=== PATIENT | female | born 1985 | race Caucasian/White ===

== ENCOUNTER 2017-03-02 18:38 | Emergency (ER) | payer OTHER ==
[2017-03-02] MEDS ORDERED: OXYCODONE-ACETAMINOPHEN 5-325 MG TABLET PO ONE (19:26)
[2017-03-02] MEDS ORDERED: CLINDAMYCIN HCL 150 MG CAPSULE PO ONE (19:27)
[2017-03-02] MEDS ORDERED: HYDROCODONE/ACETAMINOPHEN 5-325 MG 6 TAB/DSPK PO PRN (19:27)
--- NOTE | 2017-03-02 19:29 | ER Document Report ---
HPI - HPI Patient complains to provider of: dental pain, facial swelling Pain Level: 4 Context: Patient is a 31 year old female that comes emergency department for chief complaint of dental pain and facial swelling on the right side. She states she has a known fracture and is supposed to get a root canal performed. Symptoms of swelling developed over the past day or so. She denies sore throat, fever, she denies any other current symptoms. LMP within the past month. - REPRODUCTIVE Reproductive: DENIES: : Past Medical History - General Information source: Patient - Social History Smoking Status: Current Every Day Smoker Chew tobacco use (# tins/day): No Smoking Education Provided: Yes - <3 min Frequency of alcohol use: None Drug Abuse: None Lives with: Family Family History: Reviewed & Not Pertinent Patient has suicidal ideation: No Patient has homicidal ideation: No Neurological Medical History: Reports: Hx Seizures Renal/ Medical History: Denies: Hx Peritoneal Dialysis Surgical Hx: Negative - Immunizations Hx Diphtheria, Pertussis, Tetanus Vaccination: Yes Vertical Provider Document - CONSTITUTIONAL General Appearance: WD/WN, No Apparent Distress - HEENT HEENT: Atraumatic, Normocephalic. negative: Normal ENT Exam - Mild right-sided jaw swelling, dental caries but no evidence of abscess, Mouth Diagram: 1 - Dental caries, localized erythema, no palpable abscess, no other abnormalities noted in the oral cavity - NECK Neck: Normal Inspection - RESPIRATORY Respiratory: Breath Sounds Normal, No Respiratory Distress O2 Sat by Pulse Oximetry: 99 - CARDIOVASCULAR Cardiovascular: Regular Rate, Regular Rhythm - GI/ABDOMEN Gastrointestinal: Abdomen Soft, Abdomen Non-Tender - NEURO Level of Consciousness: Awake, Alert, Appropriate - DERM Integumentary: Warm, Dry, No Rash Course - Re-evaluation Re-evalutation: Evaluation consistent with dental infection without abscess or evidence of Jono's angina. Treating, patient states she will follow-up with dentist, discussed return precautions, patient states understanding and agreement. - Vital Signs Vital signs: Temp Pulse Resp BP Pulse Ox 98.5 F 89 16 125/82 99 03/02/17 18:54 03/02/17 18:54 03/02/17 18:54 03/02/17 18:54 03/02/17 18:54 Discharge - Discharge Clinical Impression: Dental infection, Facial swelling Condition: Stable Disposition: HOME, SELF-CARE Additional Instructions: Your examination indicates a dental infection and secondary swelling. Take the clindamycin as prescribed to completion. Follow-up with your dentist for repair to prevent this from happening again. Return if you worsen including increased swelling or any other concerning symptoms. Prescriptions: Clindamycin HCl [Cleocin 150 mg Capsule] 150 mg PO Q6 #56 capsule Referrals: [facility] [Provider Group] - Follow up as needed
[2017-03-02 19:42] VITALS: BP 121/88
== END 2017-03-02 19:55 | disposition home or self-care (01) ==
LOC: ER 18:38
DX: K04.7 Periapical abscess without sinus (principal); R22.0 Localized swelling, mass and lump, head; F17.200 Nicotine dependence, unspecified, uncomplicated
CPT/HCPCS: 99282

== ENCOUNTER 2017-03-13 11:14 | Emergency (ER) | payer OTHER ==
[2017-03-13] MEDS ORDERED: LIDOCAINE 2% VISCOUS SOLN 20 ML UDCUP PO ONE (12:05)
[2017-03-13] MEDS ORDERED: HYDROCODONE/ACETAMINOPHEN 5-325 MG TABLET PO ONE (12:05)
--- NOTE | 2017-03-13 12:21 | ER Document Report ---
ED Oral Problem - General Chief Complaint: Jaw Pain Stated Complaint: DENTAL PAIN Time Seen by Provider: 03/13/17 11:40 Mode of Arrival: Ambulatory Information source: Patient Notes: 31-year-old female presents to ED for dental pain in the area where her tooth # 29 was pulled last Thursday. She is still having pain and swelling to the area. She states she just finished her antibiotics. She tried to call her dentist was not able to get in. TRAVEL OUTSIDE OF THE [place] IN LAST 30 DAYS: No - HPI Patient complains to provider of: Jaw pain Onset: Other - Thursday Onset: Gradual Quality of pain: Sharp, Throbbing Severity: Moderate Pain Level: 4 Associated symptoms: Jaw pain Worsened by: Cold Relieved by: Nothing Similar symptoms previously: Yes Recently seen / treated by doctor/dentist: Yes - Related Data Allergies/Adverse Reactions: No Known Allergies Allergy (Unverified 03/13/17 11:16) Past Medical History - General Information source: Patient - Social History Smoking Status: Current Every Day Smoker Cigarette use (# per day): Yes - One half pack per day Chew tobacco use (# tins/day): No Smoking Education Provided: Yes - 4 minutes Frequency of alcohol use: Occasional Drug Abuse: None 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 denies: DM, Malignancy, Thyroid Disfunction Patient has suicidal ideation: No Patient has homicidal ideation: No - Past Medical History Cardiac Medical History: Reports: None Pulmonary Medical History: Reports: None EENT Medical History: Reports: None Neurological Medical History: Reports: Hx Seizures Endocrine Medical History: Reports: None Renal/ Medical History: Reports: None Malignancy Medical History: Reports: None GI Medical History: Reports: None Musculoskeltal Medical History: Reports None Skin Medical History: Reports None Psychiatric Medical History: Reports: None Traumatic Medical History: Reports: None Infectious Medical History: Reports: None Past Surgical History: Reports: Hx Oral Surgery - Immunizations Immunizations up to date: Yes Hx Diphtheria, Pertussis, Tetanus Vaccination: Yes Review of Systems - Review of Systems Constitutional: No symptoms reported EENT: Mouth pain Cardiovascular: No symptoms reported Respiratory: No symptoms reported Gastrointestinal: No symptoms reported Genitourinary: No symptoms reported Female Genitourinary: No symptoms reported Musculoskeletal: No symptoms reported Skin: No symptoms reported Hematologic/Lymphatic: No symptoms reported Neurological/Psychological: No symptoms reported Physical Exam - Vital signs Vitals: Temp Pulse Resp BP Pulse Ox 98.2 F 89 18 109/58 L 99 03/13/17 11:28 03/13/17 11:28 03/13/17 11:28 03/13/17 11:28 03/13/17 11:28 Interpretation: Normal - General General appearance: Appears well, Alert - HEENT Head: Normocephalic, Atraumatic Eyes: Normal Pupils: PERRL Ears: Normal External canal: Normal Tympanic membrane: Normal Sinus: Normal Nasal: Normal Mouth/Lips: Other - Tooth pulled on Thursday and still having pain Mucous membranes: Normal Teeth diagram: 1 - Tooth 29 pulled on Thursday continue to have pain. And buttocks are completed. No redness no swelling to the site. Pharynx: Normal Neck: Normal - Respiratory Respiratory status: No respiratory distress Chest status: Nontender Breath sounds: Normal Chest palpation: Normal - Cardiovascular Rhythm: Regular Heart sounds: Normal auscultation Murmur: No - Abdominal Inspection: Normal Distension: No distension Bowel sounds: Normal Tenderness: Nontender Organomegaly: No organomegaly - Back Back: Normal, Nontender - Extremities General upper extremity: Normal inspection, Nontender, Normal color, Normal ROM , Normal temperature General lower extremity: Normal inspection, Nontender, Normal color, Normal ROM , Normal temperature, Normal weight bearing. No: Antione's sign - Neurological Neuro grossly intact: Yes Cognition: Normal Orientation: AAOx4 Amelia Coma Scale Eye Opening: Spontaneous Amelia Coma Scale Verbal: Oriented Amelia Coma Scale Motor: Obeys Commands [place] Coma Scale Total: 15 Speech: Normal Motor strength normal: LUE, RUE, LLE, RLE Sensory: Normal - Psychological Associated symptoms: Normal affect, Normal mood - Skin Skin Temperature: Warm Skin Moisture: Dry Skin Color: Normal Course - Re-evaluation Re-evalutation: 03/13/17 21:42 One Goshen given in the emergency room and then she was given viscous lidocaine with the rest of it sent home with her for the pain. As she was being discharged she stated that she was able to get a hold to her dentist and she was going to go by her dentist office. - Vital Signs Vital signs: Temp Pulse Resp BP Pulse Ox 98.7 F 81 18 128/86 H 98 03/13/17 12:38 03/13/17 12:38 03/13/17 12:38 03/13/17 12:38 03/13/17 12:38 Discharge - Discharge Clinical Impression: dental pain recent extraction Condition: Stable Disposition: HOME, SELF-CARE Additional Instructions: TOOTHACHE: Dental pain today is due to your recent dental extraction sometimes the nerve becomes inflamed when you smoke after the tooth is removed. Please do not smoke continue follow-up with the dentist. Please use the viscous lidocaine every 2-3 hours as needed for dental pain but a small amount over the area that is hurting. Please do not use ice water or a straw or smoke is all of these will increase your pain. ORAL NARCOTIC MEDICATION: You have been given a Goshen for pain control. This medication is a narcotic. It's best taken with food, as nausea can result if taken on an empty stomach. Don't operate machinery or drive within six hours of taking this medication. Do not combine this medicine with alcohol, or with any medication which can cause sedation (such as cold tablets or sleeping pills) unless you get permission from the physician. Narcotics tend to cause constipation. If possible, drink plenty of fluids and eat a diet high in fiber and fruits. Please be aware that prescription narcotics also have the potential for abuse. People become addicted to these medications because of the general sense of wellbeing that they induce. This feeling along with a significant reduction in tension, anxiety, and aggression provides a stimulating seductive quality to these drugs. Once your pain is under control, we encourage you to discard your unused narcotics. FOLLOW-UP CARE: You have been referred for follow-up care to the dentists listed below. Call the dentists office for an appointment as you were instructed or within the next two days. If you experience worsening or a significant change in your symptoms, notify the physician immediately or return to the Emergency Department at any time for re-evaluation. [facility] [address] Thursday mornings, by appointment [place] [address] [place] [address] [facility] [address] [facility] [address] [facility] [address] [facility] Emergency Department [facility] [address] [email or web address] [address] [place] [address] Thursday- 8:00am to 5:00 pm Will see [facility] other [facility]. Charges based on income and family size and accepts Medicare, Medicaid, and Insurances Will pull molars [facility] [id number] Hours of Operation 8:00 am - 4:30 pm weekdays The following dental offices accept Medicaid: [facility] [address] Dr. Shaver Dr. Angel Thomas Pérez, [place], and [place] oral surgery Dr. Mead ([place]) Dr. Rosa ([place]) [facility] Drs. Doran ([place]) Dr. Cruz ([place]) [facility] Dr. Lee ([place]) Drs. Harmon and ([place]) Medicaid Care Line Forms: Smoking Cessation Education Referrals: HEATHER PETERS MD [Primary Care Provider] - Follow up as needed
[2017-03-13 12:42] VITALS: BP 128/86
== END 2017-03-13 12:41 | disposition home or self-care (01) ==
LOC: ER 11:14
DX: K08.89 Other specified disorders of teeth and supporting structures (principal); R68.84 Jaw pain; F17.210 Nicotine dependence, cigarettes, uncomplicated
CPT/HCPCS: 99406; 99283; J3490

== ENCOUNTER 2017-03-24 18:17 | Emergency (ER) | payer OTHER ==
[2017-03-24 18:26] VITALS: BP 116/75
[2017-03-24] MEDS ORDERED: TETANUS/DIPHTHERIA TOX-ADULT 0.5 ML SYR (>=7YO) IM ONE (21:52)
[2017-03-24] MEDS ORDERED: KETOROLAC TROMETHAMINE 60 MG/2 ML SDV IM ONE (21:52)
[2017-03-24] MEDS ORDERED: CLINDAMYCIN HCL 150 MG CAPSULE PO ONE (21:52)
[2017-03-24] MEDS ORDERED: LIDOCAINE 1% INJ (10 MG/ML) 10 ML MDV INJ ONE (22:25)
[2017-03-24] MEDS ORDERED: LIDOCAINE 1% INJ-PF (10 MG/ML) 30 ML SDV INJ ONE (22:27)
[2017-03-24] MEDS ORDERED: LIDOCAINE 1% INJ-PF (10 MG/ML) 30 ML SDV ONE (22:28)
[2017-03-24] MEDS ORDERED: OXYCODONE-ACETAMINOPHEN 5-325 MG TABLET PO ONE (22:34)
--- NOTE | 2017-03-24 23:16 | ER Document Report ---
ED Oral Problem - General Chief Complaint: Lip Injury Stated Complaint: LIP PIERCING STUCK/PAIN, SWELLING Time Seen by Provider: 03/24/17 21:40 Mode of Arrival: Ambulatory Information source: Patient TRAVEL OUTSIDE OF THE [place] IN LAST 30 DAYS: No - HPI Patient complains to provider of: Foreign body Notes: 31-year-old female presented today for evaluation of foreign body localized to her right lower lip. Patient reported that she inserted preceding approximately 5 days ago in order to dilate her prior piercing site. Unfortunately the piercing had stuck in her lower lip. Patient was unable to remove secondary to pain. Now patient has lower lip swelling with mild purulence at the site of the insertion. No systemic signs of illness such as fevers, chills, nausea or vomiting. - Related Data Allergies/Adverse Reactions: acetaminophen [From Tylenol-Codeine #3] Allergy (Verified 03/24/17 18:19) codeine [From Tylenol-Codeine #3] Allergy (Verified 03/24/17 18:19) Past Medical History - General Information source: Patient - Social History Smoking Status: Current Some Day Smoker Chew tobacco use (# tins/day): No Frequency of alcohol use: None Drug Abuse: None Family History: CAD, COPD, CVA, Hyperlipidemia, Hypertension. denies: DM, Malignancy, Thyroid Disfunction Patient has suicidal ideation: No Patient has homicidal ideation: No Neurological Medical History: Reports: Hx Seizures Renal/ Medical History: Denies: Hx Peritoneal Dialysis Past Surgical History: Reports: Hx Oral Surgery - Immunizations Immunizations up to date: Yes Hx Diphtheria, Pertussis, Tetanus Vaccination: Yes Review of Systems - Review of Systems Notes: REVIEW OF SYSTEMS: CONSTITUTIONAL: -fevers, -chills HEENT: -eye pain, -difficulty swallowing, -nasal congestion, +lip swelling and pain CARDIOVASCULAR: -chest pain, -syncope. RESPIRATORY: -cough, -SOB GASTROINTESTINAL: -abdominal pain, -nausea, -vomiting, -diarrhea GENITOURINARY: -dysuria, -hematuria MUSCULOSKELETAL: -back pain, -neck pain SKIN: -rash or skin lesions. HEMATOLOGIC: -easy bruising or bleeding. LYMPHATIC: -swollen, enlarged glands. NEUROLOGICAL: -altered mental status or loss of consciousness, -headache, - neurologic symptoms PSYCHIATRIC: -anxiety, -depression. ALL OTHER SYSTEMS REVIEWED AND NEGATIVE. Physical Exam - Vital signs Vitals: Temp Pulse Resp BP Pulse Ox 98.3 F 80 20 116/75 100 03/24/17 18:25 03/24/17 18:25 03/24/17 18:25 03/24/17 18:25 03/24/17 18:25 - Notes Notes: Reviewed vital signs and nursing note as charted by RN. CONSTITUTIONAL: Alert HEAD: Normocephalic; atraumatic EYES: PERRL ENT: normal nose; patient has outside of the piercing protruding from the lower aspect of the right lip, patient still has the ball inside of the lip within the subcutaneous tissue, no intraoral lesions, no facial swelling or trismus NECK: Supple without meningismus CARD: Regular rate and rhythm; no murmurs RESP: Normal chest excursion without splinting or tachypnea; breath sounds clear and equal bilaterally ABD/GI: Normal bowel sounds; non-distended; soft, EXT: Normal ROM in all joints SKIN: Normal color for age and race; warm; dry; good turgor; capillary refill < 2 seconds; no acute lesions noted NEURO: .Cranial nerves 3-12 intact PSYCH: Slightly anxious Course - Re-evaluation Re-evalutation: 03/24/17 23:24 31-year-old presented today for evaluation of lip piercing Patient was started on clindamycin as well as given Percocet for pain Tetanus was updated Foreign body was removed successfully with local anesthesia, please see procedure note Patient was discharged home with Percocet for pain as well as clindamycin - Vital Signs Vital signs: Temp Pulse Resp BP Pulse Ox 98.3 F 80 20 116/75 100 03/24/17 18:25 03/24/17 18:25 03/24/17 18:25 03/24/17 18:25 03/24/17 18:25 Procedures - Incision and Drainage Face Type: Simple Anesthetic type: 1% Lidocaine I&D procedure: Chlorprep applied Incision Method: Incision made with needle - No incision was performed Notes: 03/24/17 23:26 Skin was prepped with chlorhexidine Local anesthesia was used with lidocaine without any epinephrine Lip piercing was removed with direct traction Patient tolerated procedure well No complications Mild postprocedure bleeding that has completely resolved prior to discharge Discharge - Discharge Clinical Impression: Foreign body in oral cavity Condition: Stable Disposition: HOME, SELF-CARE Additional Instructions: Please take your antibiotics as prescribed You can wash your skin with soap and water Continue take your pain medication as prescribed Come back if you have worsening fevers, chills, lip swelling, shortness of breath Prescriptions: Clindamycin HCl 300 mg PO Q6H #28 capsule Meloxicam 7.5 mg PO DAILY #7 tablet Oxycodone HCl/Acetaminophen [Percocet 5-325 mg Tablet] 1 tab PO ASDIR PRN #5 tab PRN Reason: Referrals: HEATHER PETERS MD [Primary Care Provider] - Follow up as needed
== END 2017-03-24 23:00 | disposition home or self-care (01) ==
LOC: ER 18:17
DX: S01.521A Laceration with foreign body of lip, initial encounter (principal); X58.XXXA Exposure to other specified factors, initial encounter; F17.200 Nicotine dependence, unspecified, uncomplicated; Z23 Encounter for immunization
CPT/HCPCS: 90471; 90714; 99283; J1885

== ENCOUNTER 2017-08-31 18:06 | Emergency (ER) | payer OTHER ==
[2017-08-31 18:20] VITALS: BP 100/54
--- NOTE | 2017-08-31 18:59 | ER Document Report ---
ED Medical Screen (RME) - General Chief Complaint: General Weakness Stated Complaint: DIZZINESS Time Seen by Provider: 08/31/17 18:45 Notes: 31-year-old female patient comes emergency room complaining of 6 day history of slurred speech, weakness and difficulty getting out of bed. Patient states [place] [facility]. She started falling and had a seizure. She has a seizure disorder and takes Keppra and Lamictal. She also takes Adderall 3 times daily, and Xanax 1 mg twice daily. She initially seems to be solving with nasal congestion or rhinorrhea. Her speech is somewhat slurred, however when she got angry about the line of questioning, she ripped off a very long sentence without any slurred speech. The rest of the time her speech is somewhat difficult to understand. At one time she stated that the symptoms started in the middle of October. When I told her that we will be getting a CT scan due to the symptoms she was reporting, she states she had one 2 months ago. When I advised her that 2 months ago she was not having these symptoms, she seemed to get a little agitated. I have greeted and performed a rapid initial assessment of this patient. A comprehensive ED assessment and evaluation of the patient, analysis of test results and completion of the medical decision making process will be conducted by additional ED providers. While I was putting in orders and dictating the RME, the nurse reported that the patient walked out and told her she wanted to leave, and they left. TRAVEL OUTSIDE OF THE [place] IN LAST 30 DAYS: No - Related Data Allergies/Adverse Reactions: No Known Allergies Allergy (Verified 08/31/17 18:41) Home Medications: Keppra 1000mg daily, Past Medical History - Social History Chew tobacco use (# tins/day): No Frequency of alcohol use: None Drug Abuse: None Neurological Medical History: Reports: Hx Seizures Renal/ Medical History: Denies: Hx Peritoneal Dialysis Past Surgical History: Reports: Hx Oral Surgery - Immunizations Immunizations up to date: Yes Hx Diphtheria, Pertussis, Tetanus Vaccination: Yes Physical Exam - Vital signs Vitals: Temp Pulse Resp BP Pulse Ox 98.0 F 54 L 20 100/54 L 97 08/31/17 18:18 08/31/17 18:18 08/31/17 18:18 08/31/17 18:18 08/31/17 18:18 Course - Vital Signs Vital signs: Temp Pulse Resp BP Pulse Ox 98.0 F 54 L 20 100/54 L 97 08/31/17 18:18 08/31/17 18:18 08/31/17 18:18 08/31/17 18:18 08/31/17 18:18 Doctor's Discharge - Discharge Condition: Good Disposition: ELOPED Referrals: HEATHER PETERS MD [Primary Care Provider] - Follow up as needed
== END 2017-08-31 18:54 | disposition left against medical advice (07) ==
LOC: ER 18:06
DX: R53.1 Weakness (principal); R47.81 Slurred speech; G40.909 Epilepsy, unspecified, not intractable, without status epilepticus; Z79.899 Other long term (current) drug therapy; Z53.20 Procedure and treatment not carried out because of patient's decision for unspecified reasons
CPT/HCPCS: 99281

== ENCOUNTER 2017-09-25 12:42 | Emergency (ER) | payer OTHER ==
[2017-09-25] MEDS ORDERED: ACETAMINOPHEN 325 MG TABLET PO ONE (12:57)
--- NOTE | 2017-09-25 12:59 | ER Document Report ---
ED Medical Screen (RME) - General Chief Complaint: Vaginal Bleeding Stated Complaint: VAGINAL BLEEDING Time Seen by Provider: 09/25/17 12:54 Mode of Arrival: Ambulatory Information source: Patient TRAVEL OUTSIDE OF THE [place] 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 The patient will be seen and fully evaluated, including a full history and physical exam, by a provider ( in Main ED or Fast Track) when a room becomes available. - Related Data Allergies/Adverse Reactions: No Known Allergies Allergy (Verified 09/25/17 12:46) Past Medical History Neurological Medical History: Reports: Hx Seizures Renal/ Medical History: Denies: Hx Peritoneal Dialysis Past Surgical History: Reports: Hx Oral Surgery - Immunizations Immunizations up to date: Yes Hx Diphtheria, Pertussis, Tetanus Vaccination: Yes Physical Exam - Vital signs Vitals: Temp Pulse Resp BP Pulse Ox 97.9 F 89 16 125/76 99 09/25/17 12:50 09/25/17 12:50 09/25/17 12:50 09/25/17 12:50 09/25/17 12:50 Course - Vital Signs Vital signs: Temp Pulse Resp BP Pulse Ox 97.9 F 89 16 125/76 99 09/25/17 12:50 09/25/17 12:50 09/25/17 12:50 09/25/17 12:50 09/25/17 12:50 Doctor's Discharge - Discharge Referrals: HEATHER PETERS MD [Primary Care Provider] - Follow up as needed
[2017-09-25 13:38] LABS: ABSOLUTE BASOPHILS # (AUTO) 0.1 10^3/uL (0.0-0.2); ABSOLUTE EOSINOPHILS # (AUTO) 0.2 10^3/uL (0.0-0.6); ABSOLUTE LYMPHOCYTES (AUTO) 1.8 10^3/uL (0.5-4.7); ABSOLUTE MONOCYTES (AUTO) 0.4 10^3/uL (0.1-1.4); ABSOLUTE NEUT (AUTO) 3.3 10^3/uL (1.7-8.2); BASOPHILS % (AUTO) 1.1 % (0-2); EOSINOPHILS % (AUTO) 2.8 % (0-6); HEMOGLOBIN 14.7 g/dL (12.0-15.5); LYMPHOCYTES % (AUTO) 30.9 % (13-45); MEAN CORPUSCULAR HEMOGLOBIN 29.5 pg (27.0-33.4); MEAN CORPUSCULAR HGB CONC 33.4 g/dL (32.0-36.0); MEAN CORPUSCULAR VOLUME 88 fl (80-97); MONOCYTES % (AUTO) 7.2 % (3-13); PLATELET COUNT 315 10^3/uL (150-450); RED BLOOD COUNT 4.97 10^6/uL (3.72-5.28); RED CELL DISTRIBUTION WIDTH 15.1 % (11.5-14.0); TOTAL CELLS COUNTED % (AUTO) 100 %; WHITE BLOOD COUNT 5.7 10^3/uL (4.0-10.5)
--- NOTE | 2017-09-25 13:41 | ER Document Report ---
ED GI/ - General Chief Complaint: Vaginal Bleeding Stated Complaint: VAGINAL BLEEDING Time Seen by Provider: 09/25/17 12:54 Mode of Arrival: Ambulatory Information source: Patient Notes: 31-year-old complaining of vaginal bleeding and cramping she is supposed to be 12 weeks by LMP being the end of June. She had a positive urine test early July confirmed by [facility] in no check since then. She did have some spotting in August without pain. No vaginal discharge or odor. No rectal pain. No frequency dysuria. No fever or chills. TRAVEL OUTSIDE OF THE [place] IN LAST 30 DAYS: No - Related Data Allergies/Adverse Reactions: No Known Allergies Allergy (Verified 09/25/17 12:46) Past Medical History - General Information source: Patient - Social History Smoking Status: Never Smoker Chew tobacco use (# tins/day): No Frequency of alcohol use: None Drug Abuse: None Lives with: Spouse/Significant other Family History: CAD, COPD, CVA, Hyperlipidemia, Hypertension Patient has suicidal ideation: No Patient has homicidal ideation: No Neurological Medical History: Reports: Hx Seizures Renal/ Medical History: Denies: Hx Peritoneal Dialysis Past Surgical History: Reports: Hx Dilation and Curettage - several, Hx Oral Surgery - Immunizations Immunizations up to date: Yes Hx Diphtheria, Pertussis, Tetanus Vaccination: Yes Review of Systems - Review of Systems Constitutional: No symptoms reported EENT: No symptoms reported Cardiovascular: No symptoms reported Respiratory: No symptoms reported Gastrointestinal: No symptoms reported Genitourinary: No symptoms reported Female Genitourinary: See HPI Musculoskeletal: No symptoms reported Skin: No symptoms reported Hematologic/Lymphatic: No symptoms reported Neurological/Psychological: No symptoms reported Physical Exam - Vital signs Vitals: Temp Pulse Resp BP Pulse Ox 97.9 F 89 16 125/76 99 09/25/17 12:50 09/25/17 12:50 09/25/17 12:50 09/25/17 12:50 09/25/17 12:50 Interpretation: Normal - General General appearance: Appears well, Alert - HEENT Head: Normocephalic, Atraumatic Eyes: Normal Pupils: PERRL Neck: Supple - Respiratory Respiratory status: No respiratory distress Chest status: Nontender Breath sounds: Normal Chest palpation: Normal - Cardiovascular Rhythm: Regular Heart sounds: Normal auscultation Murmur: No - Abdominal Inspection: Normal Distension: No distension Bowel sounds: Normal Tenderness: Nontender. No: Tender Organomegaly: No organomegaly - Back Back: Normal, Nontender - Extremities General upper extremity: Normal inspection, Nontender, Normal color, Normal ROM , Normal temperature General lower extremity: Normal inspection, Nontender, Normal color, Normal ROM , Normal temperature, Normal weight bearing. No: Antione's sign - Neurological Neuro grossly intact: Yes Cognition: Normal Orientation: AAOx4 [place] Coma Scale Eye Opening: Spontaneous [place] Coma Scale Verbal: Oriented [employer] [place] Coma Scale Motor: Obeys Commands Amelia Coma Scale Total: 15 Speech: Normal Motor strength normal: LUE, RUE, LLE, RLE Sensory: Normal - Psychological Associated symptoms: Normal affect, Normal mood - Skin Skin Temperature: Warm Skin Moisture: Dry Skin Color: Normal Skin irregularity: negative: Rash Course - Re-evaluation Re-evalutation: 09/25/17 14:19 test quantitative is negative, there is no intra-or extrauterine on the ultrasound. Chemistry is negative, urinalysis shows 2 WBCs no RBCs and a trace of bacteria, the CBC is normal the hemoglobin is 14.7. There are no adnexal masses, free fluid in the blood flow to the ovaries are visualized by ultrasound Doppler. No retained products. 09/25/17 14:21 09/25/17 14:31 - Vital Signs Vital signs: Temp Pulse Resp BP Pulse Ox 97.9 F 89 16 125/76 99 09/25/17 12:50 09/25/17 12:50 09/25/17 12:50 09/25/17 12:50 09/25/17 12:50 - Laboratory Result Diagrams: 09/25/17 13:23 09/25/17 13:23 Laboratory results interpreted by me: 09/25/17 09/25/17 13:10 13:23 RDW 15.1 H Urine Blood LARGE H Urine Urobilinogen 2.0 H Discharge - Discharge Clinical Impression: Cramping and vaginal bleeding Condition: Good Disposition: HOME, SELF-CARE Instructions: Ibuprofen (General) ([facility]), Pelvic Pain ([facility]), Vaginal Bleeding ( [facility]) Additional Instructions: Warm compress may help with the cramps Motrin for cramps Follow-up with your primary care doctor Copy of the ultrasound and lab work has been given to you Prescriptions: Ibuprofen [Motrin 600 mg Tablet] 600 mg PO Q8HP PRN #30 tablet PRN Reason: Referrals: HEATHER PETERS MD [NO LOCAL MD] - Follow up as needed
[2017-09-25 13:42] LABS: APPEARANCE,URINE SLIGHTLY-CLOUDY; BILIRUBIN,URINE NEGATIVE (NEGATIVE); COLOR,URINE YELLOW; GLUCOSE, URINE NEGATIVE (NEGATIVE); KETONES,URINE NEGATIVE (NEGATIVE); LEUKOCYTE ESTERASE,URINE NEGATIVE (NEGATIVE); NITRITE,URINE NEGATIVE (NEGATIVE); PROTEIN,URINE NEGATIVE (NEGATIVE); URINE SPECIFIC GRAVITY 1.014
[2017-09-25 13:51] LABS: ALANINE AMINOTRANSFERASE 19 U/L (9-52); ALBUMIN 4.3 g/dL (3.5-5.0); ALKALINE PHOSPHATASE 63 U/L (38-126); ANION GAP 13 (5-19); ASPARTATE AMINO TRANSFERASE 17 U/L (14-36); BILIRUBIN,DIRECT 0.2 mg/dL (0.0-0.4); BILIRUBIN,TOTAL 0.5 mg/dL (0.2-1.3); BLOOD UREA NITROGEN 8 mg/dL (7-20); CALCIUM 9.1 mg/dL (8.4-10.2); CARBON DIOXIDE 22 mmol/L (22-30); CHLORIDE 105 mmol/L (98-107); GLUCOSE 99 mg/dL (75-110); POTASSIUM 4.6 mmol/L (3.6-5.0); TOTAL PROTEIN 7.3 g/dL (6.3-8.2)
--- NOTE | 2017-09-25 14:13 | RADIOLOGY REPORT (SQ) ---
EXAM DESCRIPTION: U/S [id number] TRNABD 1GES W/ODOP COMPLETED DATE/TIME: 09/25/2017 1:51 pm REASON FOR STUDY: vaginal bleeding COMPARISON: None. TECHNIQUE: Transabdominal static and realtime grayscale images acquired of the pelvis. Additional se lected color Doppler images recorded. All images stored on PACs. BHCG: Not available. LIMITATIONS: None. FINDINGS: UTERUS: The uterus measures 7.4 x 6.7 x 5.2 cm. The endometrium measures 5 mm in double w all thickness. No visualized intrauterine . The cervix measures 1.6 cm in length. RIGHT ADNEXA: The right ovary measures 2.7 x 1.9 x 2.2 cm. Flow by Doppler was shown to the right ov tamar. No adnexal free fluid. No adnexal masses. LEFT ADNEXA: The left ovary measures 2.5 x 1.6 x 1.6 cm. Flow by Doppler was shown to the left ovary . No adnexal free fluid. No adnexal masses. FREE FLUID: None. IMPRESSION: NO VISUALIZED INTRA- OR EXTRAUTERINE . ECTOPIC CANNOT BE EXCLUDED. FOLLOW-UP ULTRASOUND AND SERIAL BHCG LEVELS STRONGLY RECOMMENDED TO ACCURATELY ASSESS STATU S. TECHNICAL DOCUMENTATION: JOB ID: [id number] [place]-[id number] 2010 [employer] - [employer]- All Rights Reserved Reading location - IP/workstation name: [email or web address]
[2017-09-25] MEDS ORDERED: HYDROCODONE/ACETAMINOPHEN 5-325 MG TABLET PO ONE (14:30)
[2017-09-25 14:49] VITALS: BP 132/84
== END 2017-09-25 14:49 | disposition home or self-care (01) ==
LOC: ER 12:42
DX: N93.9 Abnormal uterine and vaginal bleeding, unspecified (principal); R25.2 Cramp and spasm
CPT/HCPCS: 36415; 76801; 80053; 81001; 84702; 85025; 86900; 86901; 87086; 99284

== ENCOUNTER 2017-10-20 11:31 | Emergency (ER) | payer OTHER | END 2017-10-20 12:12 | disposition left against medical advice (07) | LOC: ER 11:31 | DX: Z53.21 Procedure and treatment not carried out due to patient leaving prior to being seen by health care provider (principal) ==

== ENCOUNTER 2018-01-19 06:48 | Emergency (ER) | payer OTHER ==
[2018-01-19 07:33] LABS: APPEARANCE,URINE TURBID; BILIRUBIN,URINE NEGATIVE (NEGATIVE); COLOR,URINE YELLOW; GLUCOSE, URINE NEGATIVE (NEGATIVE); KETONES,URINE NEGATIVE (NEGATIVE); LEUKOCYTE ESTERASE,URINE LARGE (NEGATIVE); NITRITE,URINE NEGATIVE (NEGATIVE); PROTEIN,URINE 100 mg/dL (NEGATIVE); URINE SPECIFIC GRAVITY 1.014
[2018-01-19] MEDS ORDERED: LIDOCAINE 1% INJ-PF (10 MG/ML) 30 ML SDV INJ ONE (07:49)
[2018-01-19] MEDS ORDERED: CEFTRIAXONE INJ 1000 MG VIAL IM ONE (07:49)
--- NOTE | 2018-01-19 07:55 | ER Document Report ---
HPI - HPI Pain Level: 5 Notes: Patient is a 32-year-old female with a history of epilepsy who presents to the ED complaining of bilateral flank pain, suprapubic pressure, burning with urination, and generalized body ache over the last week. Patient states that she has tried conservative measures without any resolve. Patient states that she did start having spotting which she believes is the start of her cycle. Denies drug allergies. She is still able to eat and drink, but does have a decreased p.o. intake. She is having normal bowel movements. She has no concern of STD or STI. Denies any headache, fever, URI, sore throat, chest pain , palpitations, syncope, cough, shortness of breath, wheeze, dyspnea, nausea/ vomiting/diarrhea, loss of control of bowel or bladder, numbness/tingling, saddle anesthesia, muscle paralysis/weakness, or rash. - ROS Systems Reviewed and Negative: Yes All other systems reviewed and negative - CONSTITUTIONAL Constitutional: REPORTS: Fever, Chills - URINARY Urinary: REPORTS: Dysuria, Urgency, Frequency - REPRODUCTIVE Reproductive: DENIES: : Past Medical History - Social History Smoking Status: Current Every Day Smoker Chew tobacco use (# tins/day): No Drug Abuse: None Family History: CAD, COPD, CVA, Hyperlipidemia, Hypertension Patient has suicidal ideation: No Patient has homicidal ideation: No Neurological Medical History: Reports: Hx Seizures Renal/ Medical History: Denies: Hx Peritoneal Dialysis Past Surgical History: Reports: Hx Dilation and Curettage - several, Hx Oral Surgery - Immunizations Immunizations up to date: Yes Hx Diphtheria, Pertussis, Tetanus Vaccination: Yes Vertical Provider Document - CONSTITUTIONAL Agree With Documented VS: Yes Notes: PHYSICAL EXAMINATION: GENERAL: Well-appearing, well-nourished and in no acute distress. HEAD: Atraumatic, normocephalic. EYES: Pupils equal round and reactive to light, extraocular movements intact, sclera anicteric, conjunctiva are normal. ENT: EAC clear b/l. TM's intact b/l without erythema, fluid, or perforation. Nares patent and without discharge. oropharynx clear without exudates. No tonsilar hypertrophy or erythema. Moist mucous membranes. No sinus tenderness. NECK: Normal range of motion, supple without lymphadenopathy LUNGS: Breath sounds clear to auscultation bilaterally and equal. No wheezes rales or rhonchi. HEART: Regular rate and rhythm without murmurs, rubs, gallops. ABDOMEN: Soft, nondistended abdomen. No guarding, no rebound. No masses appreciated. Normal bowel sounds present. + mild b/l CVA tenderness. + mild suprapubic tenderness. No tenderness at McBurney point. Sandoval neg. Musculoskeletal: FROM to passive/active. Strength 5+/5. Extremities: No cyanosis, clubbing, or edema b/l. Peripheral pulses 2+. Capillary refill less than 3 seconds. NEUROLOGICAL: Normal speech, normal gait. Normal sensory, motor exams PSYCH: Normal mood, normal affect. SKIN: Warm, Dry, normal turgor, no rashes or lesions noted. - INFECTION CONTROL TRAVEL OUTSIDE OF THE [place] IN LAST 30 DAYS: No Course - Re-evaluation Re-evalutation: 01/19/18 07:52 Patient is an afebrile, well-hydrated, 32-year-old female who presents to the ED with an acute UTI, suspect pyelonephritis as well. Vitals are acceptable without any significant tachycardia, tachypnea, or hypoxia. PE is otherwise unremarkable. Patient is nontoxic-appearing and is tolerating p.o. w/o any difficulties. Rocephin given IM today. No further labs or imaging warranted. See urinalysis. Urine culture is pending. HCG negative. Low suspicion/risk for acute appendicitis, bowel obstruction, acute cholecystitis, acute cholangitis, perforated diverticulitis, incarcerated hernia, pancreatitis, perforated ulcer, peritonitis, sepsis, pelvic inflammatory disease, ectopic , tubo-ovarian abscess, ovarian torsion, or other systemic emergent condition at this time. Patient is aware that her condition can change from initial presentation and she needs to monitor symptoms closely and seek medical attention if any acute changes. I will send her home with a prescription for Keflex. Conservative measures otherwise for symptoms. Recheck with your PCM in 3-5 days. Return to the ED with any worsening/concerning symptoms otherwise as reviewed in discharge. Patient is in agreement. - Vital Signs Vital signs: Temp Pulse Resp BP Pulse Ox 98.2 F 105 H 20 116/59 L 96 01/19/18 07:00 01/19/18 07:00 01/19/18 07:00 01/19/18 07:00 01/19/18 07:00 - Laboratory Laboratory results interpreted by me: 01/19/18 06:55 Urine Protein 100 H Urine Blood LARGE H Urine Urobilinogen 4.0 H Ur Leukocyte Esterase LARGE H Discharge - Discharge Clinical Impression: Acute UTI (urinary tract infection), Pyelonephritis Condition: Stable Disposition: HOME, SELF-CARE Instructions: Cephalexin ([facility]), Pyelonephritis ([facility]), Urinary Tract Infection ( [facility]) Additional Instructions: Push fluids (i.e. water, cranberry juice) Proper hygenic technique Keep the skin clean Tylenol/ibuprofen as needed May use over the counter AZO for burning with urination x2-3 days Take medications as directed F/u with your PCM in 3-5 days for a recheck Consider consult with a Urologist for ongoing/worsening symptoms. Return to the ED with any worsening symptoms and/or development of fever, headache, chest pain, palpitations, syncope, shortness of breath, trouble breathing, abdominal pain, n/v/d, blood in stool/urine, loss of control of bowel /bladder, urinary retention, or other worsening symptoms that are concerning to you. Prescriptions: Cephalexin Monohydrate [Keflex 500 mg Capsule] 500 mg PO QID #40 capsule Referrals: [facility] [Provider Group] - Follow up as needed
[2018-01-19] MEDS ORDERED: OXYCODONE HCL IR 5 MG TABLET PO ONE (07:59)
[2018-01-19 08:52] VITALS: BP 102/60
== END 2018-01-19 08:52 | disposition home or self-care (01) ==
LOC: ER 06:48
DX: N10 Acute pyelonephritis (principal); F17.200 Nicotine dependence, unspecified, uncomplicated
CPT/HCPCS: 99283; 87086; 81025; 87088; 81001; 87186; J3490; J0696

== ENCOUNTER 2018-01-21 10:49 | Emergency (ER) | payer OTHER ==
[2018-01-21 12:23] LABS: APPEARANCE,URINE SLIGHTLY-CLOUDY; BILIRUBIN,URINE NEGATIVE (NEGATIVE); COLOR,URINE YELLOW; GLUCOSE, URINE NEGATIVE (NEGATIVE); KETONES,URINE NEGATIVE (NEGATIVE); LEUKOCYTE ESTERASE,URINE SMALL (NEGATIVE); NITRITE,URINE NEGATIVE (NEGATIVE); PROTEIN,URINE NEGATIVE (NEGATIVE); URINE SPECIFIC GRAVITY 1.018
[2018-01-21] MEDS ORDERED: NORMAL SALINE 1000 ML 1,000 ML IV ONE (12:54)
[2018-01-21 13:27] LABS: ABSOLUTE EOSINOPHILS # (AUTO) 0.1 10^3/uL (0.0-0.6); ABSOLUTE LYMPHOCYTES (AUTO) 1.2 10^3/uL (0.5-4.7); ABSOLUTE MONOCYTES (AUTO) 0.4 10^3/uL (0.1-1.4); ABSOLUTE NEUT (AUTO) 2.3 10^3/uL (1.7-8.2); BASOPHILS % (AUTO) 0.5 % (0-2); EOSINOPHILS % (AUTO) 2.8 % (0-6); HEMATOCRIT 37.5 % (36.0-47.0); HEMOGLOBIN 12.7 g/dL (12.0-15.5); LYMPHOCYTES % (AUTO) 30.2 % (13-45); MEAN CORPUSCULAR HEMOGLOBIN 29.6 pg (27.0-33.4); MEAN CORPUSCULAR HGB CONC 33.9 g/dL (32.0-36.0); MEAN CORPUSCULAR VOLUME 87 fl (80-97); MONOCYTES % (AUTO) 10.2 % (3-13); PLATELET COUNT 259 10^3/uL (150-450); RED CELL DISTRIBUTION WIDTH 13.7 % (11.5-14.0); SEGMENTED NEUTROPHILS % (AUTO) 56.3 % (42-78); TOTAL CELLS COUNTED % (AUTO) 100 %; WHITE BLOOD COUNT 4.1 10^3/uL (4.0-10.5)
[2018-01-21] MEDS ORDERED: KETOROLAC TROMETHAMINE INJ/PF 30 MG/1 ML SDV IV ONE (13:58)
--- NOTE | 2018-01-21 15:14 | ER Document Report ---
ED General - General Chief Complaint: Skin Problem Stated Complaint: MEDICATION REACTION Time Seen by Provider: 01/21/18 11:44 TRAVEL OUTSIDE OF THE [place] IN LAST 30 DAYS: No - Related Data Allergies/Adverse Reactions: No Known Allergies Allergy (Verified 01/21/18 10:51) Past Medical History - Social History Smoking Status: Current Every Day Smoker Chew tobacco use (# tins/day): No Frequency of alcohol use: None Drug Abuse: None Family History: CAD, COPD, CVA, Hyperlipidemia, Hypertension Patient has suicidal ideation: No Patient has homicidal ideation: No Neurological Medical History: Reports: Hx Seizures Renal/ Medical History: Denies: Hx Peritoneal Dialysis Past Surgical History: Reports: Hx Dilation and Curettage - several, Hx Oral Surgery - Immunizations Immunizations up to date: Yes Hx Diphtheria, Pertussis, Tetanus Vaccination: Yes Physical Exam - Vital signs Vitals: Temp Pulse Resp BP Pulse Ox 98.4 F 83 16 117/70 98 01/21/18 10:55 01/21/18 10:55 01/21/18 10:55 01/21/18 10:55 01/21/18 10:55 Course - Vital Signs Vital signs: Temp Pulse Resp BP Pulse Ox 98.4 F 83 16 117/70 98 01/21/18 10:55 01/21/18 10:55 01/21/18 10:55 01/21/18 10:55 01/21/18 10:55 - Laboratory Result Diagrams: 01/21/18 13:06 Laboratory results interpreted by me: 01/21/18 12:05 Urine Blood LARGE H Urine Urobilinogen 4.0 H Ur Leukocyte Esterase SMALL H Discharge - Discharge Clinical Impression: Herpes simplex virus (HSV) infection Urinary tract infection Qualifiers: Urinary tract infection type: site unspecified Hematuria presence: with hematuria Qualified Code(s): N39.0 - Urinary tract infection, site not specified ; R31.9 - Hematuria, unspecified; R31.9 - Hematuria, unspecified Condition: Stable Disposition: HOME, SELF-CARE Additional Instructions: Herpes Simplex You have been diagnosed as having a herpes virus infection. The herpes ( "cold sore") virus usually infects the areas around the mouth. However, it can cause infection on any skin surface. It's particularly dangerous if infection occurs in the eye. On the initial infection, herpes blisters erupt over a large area. There is usually fever and aching. This infection takes about 14 days to resolve. After the initial infection, herpes sores can erupt on small areas (usually the lips), then heal in about a week. Sunburn, fever, local irritation, or even emotions can provoke a "fever blister" attack of herpes. Initial herpes infections can be treated with medication if severe. Subsequent attacks are usually given only local care to reduce symptoms; however , the physician may decide to prescribe anti-viral medication if your case warrants it. Call the doctor if you are worsening in any way. URINARY TRACT INFECTION: Your evaluation indicates that you have a urinary tract infection. This is due to germs growing in the bladder. This is a common problem. This infection usually responds quickly to antibiotics. Your antibiotic should be taken exactly as prescribed. Drink plenty of fluids -- three to four quarts a day. Occasionally, a bladder anesthetic will be prescribed to help stop the feeling of urgency until the antibiotic has a chance to clear the infection. This may cause your urine to be dark orange. Certain urine infections require a culture. If the doctor obtained a culture, the results will be back in two days. You should call to see if a change in treatment is needed. A repeat urinalysis after you finish treatment is often recommended. The physician will let you know if further testing is required. Call the doctor if you develop fever, chills, flank pain, inability to urinate, or blood in the urine. CEPHALEXIN: The antibiotic you've been prescribed is a member of the cephalosporin class. This type of antibiotic covers a wide variety of infections, including those of the skin, lungs, and urinary tract. It's useful for staph infections. This antibiotic is slightly similar to the penicillin family. In rare cases , a person who is allergic to penicillin will also be allergic to this medication. If you have had a severe allergic reaction to penicillin, and have not taken this antibiotic since that time, notify your doctor. Antibiotics which cover many germs ("broad spectrum" antibiotics) are more likely to cause diarrhea or "yeast" infections. Women prone to vaginal yeast problems may suffer an attack after taking this antibiotic. In infants, oral thrush (white spots "stuck" on the cheek) or yeast diaper rash may result. See your doctor if these problems occur. Call at once if you develop itching, hives , shortness of breath, or lightheadedness. FOLLOW-UP CARE: If you have been referred to a physician for follow-up care, call the physician s office for an appointment as you were instructed or within the next two days. If you experience worsening or a significant change in your symptoms, notify the physician immediately or return to the Emergency Department at any time for re-evaluation. Prescriptions: Hydrocodone Bit/Acetaminophen [Hydrocodon-Acetaminophen 5-325] 1 each PO Q4H # 12 tablet Valacyclovir HCl [Valtrex 500 Mg Tablet] 2,000 mg PO Q12H #20 tablet
[2018-01-21 15:38] VITALS: BP 128/74
[2018-01-23 04:37] LABS: HSV I DNA Negative (Negative)
[2018-01-23 09:37] LABS: HSV II DNA Negative (Negative)
== END 2018-01-21 15:38 | disposition home or self-care (01) ==
LOC: ER 10:49
DX: B00.9 Herpesviral infection, unspecified (principal); N39.0 Urinary tract infection, site not specified; R31.9 Hematuria, unspecified; F17.200 Nicotine dependence, unspecified, uncomplicated
CPT/HCPCS: 99283; 96361; 96374; 87529; 36415; 87086; 85025; 81001; 87250; J1885; J7030

== ENCOUNTER 2018-09-07 18:16 | Emergency (ER) | payer OTHER ==
[2018-09-07 18:25] VITALS: BP 117/43
== END 2018-09-07 18:53 | disposition left against medical advice (07) ==
LOC: ER 18:16
DX: Z53.21 Procedure and treatment not carried out due to patient leaving prior to being seen by health care provider (principal)

== ENCOUNTER 2018-09-12 21:45 | Observation (INO) | payer OTHER ==
[2018-09-12] MEDS ORDERED: HYDROMORPHONE HCL INJ/PF 2 MG/ML AMPULE IV ONE ×2 (22:44→23:38)
[2018-09-12] MEDS ORDERED: ANTIVENIN,CROTALIDAE FAB(OVIN) INJ 1 VIAL IV ONE (22:44)
--- NOTE | 2018-09-12 22:49 | ER Document Report ---
ED General - General Chief Complaint: Snake Bite Stated Complaint: SNAKE BITE Time Seen by Provider: 09/12/18 22:40 Primary Care Provider: SID ELLIS MD [Primary Care Provider] - Follow up as needed Notes: Patient is a pleasant 32-year-old female presents with complaint of snakebite to the left foot. Patient was walking outside barefooted and felt dyspneic but her twice. She did not see the snake and does not know what kind a snake it was. She called EMS was brought here. She has swelling in her foot and into her lower leg. She denies any medical allergies. She is otherwise healthy. She received 200 mcg of fentanyl and 1 mg Dilaudid in a month and still has severe pain. No difficulty breathing. No vomiting. No dizziness. No fevers. TRAVEL OUTSIDE OF THE [place] IN LAST 30 DAYS: No - Related Data Allergies/Adverse Reactions: No Known Allergies Allergy (Verified 09/07/18 18:17) Past Medical History - Social History Smoking Status: Unknown if Ever Smoked Frequency of alcohol use: None Drug Abuse: None Family History: CAD, COPD, CVA, Hyperlipidemia, Hypertension Patient has suicidal ideation: No Patient has homicidal ideation: No Neurological Medical History: Reports: Hx Seizures Renal/ Medical History: Denies: Hx Peritoneal Dialysis Past Surgical History: Reports: Hx Dilation and Curettage - several, Hx Oral Surgery - Immunizations Immunizations up to date: Yes Hx Diphtheria, Pertussis, Tetanus Vaccination: Yes Review of Systems - Review of Systems Notes: My Normal Review Basic REVIEW OF SYSTEMS: CONSTITUTIONAL : Denies fever, chills, or sweats. Denies recent illness. EENT: No mouth swelling. CARDIOVASCULAR: Denies chest pain. RESPIRATORY: Denies cough, cold, or chest congestion. Denies shortness of breath, difficulty breathing, or wheezing. GASTROINTESTINAL: Denies abdominal pain. Denies nausea, vomiting, or diarrhea. MUSCULOSKELETAL: Pain and swelling to left foot and left leg SKIN: Denies rash or skin lesions. HEMATOLOGIC : Denies easy bruising or bleeding. NEUROLOGICAL: Denies altered mental status or loss of consciousness. Denies headache. Denies weakness or paralysis or loss of use of either side. Denies problems with gait or speech. Denies sensory or motor loss. ALL OTHER SYSTEMS REVIEWED AND NEGATIVE. Physical Exam - Vital signs Vitals: Resp Pulse Ox 17 100 09/12/18 21:56 09/12/18 21:56 - Notes Notes: General Appearance: Well nourished, alert, cooperative, no acute distress, alert severe obvious discomfort. Vitals: reviewed, See vital signs table. Head: no swelling or tenderness to the head Eyes: PERRL, EOMI, Conjuctiva clear Mouth: No decreasd moisture Neck: Supple, no neck tenderness, No neck swelling Lungs: No wheezing, No rales, No rhonci, No accessory muscle use, good air exchange bilaterally. Heart: Normal rate, Regular rythm, No murmur, no rub Abdomen: Normal BS, soft, No rigidity, No abdominal tenderness, No guarding, no rebound, no abdominal masses, no organomegaly Extremities: strength 5/5 in all extremities, good pulses in all extremities, swelling and bruising into the left foot with left leg below the knee obviously more swollen than the right leg. Patient has 4 puncture wounds on the medial dorsal aspect of the left foot. Skin: warm, dry, appropriate color, no rash Neuro: speech clear, oriented x 3, normal affect, responds appropriately to questions. Course - Re-evaluation Re-evalutation: 09/12/18 22:48 Patient has what appears to be an obvious firmness bite. She Jorge has significant swelling and bruising foot and going into the leg. She is in severe pain. I talked about the risks and benefits of CroFab and did recommend CroFab. She has been agreed to go forward with the ministration of the [facility]. Patient has been ordered pain medicine. Labs have been ordered. 09/13/18 00:13 Despite 3.5mg of Dilaudid patient's pain is still intractable. I will try low- dose ketamine for pain control. CroFab is now infusing. 09/13/18 01:05 After the 25 mg of ketamine patient's pain is much better controlled. She says says she has some pain but she is much more calm. Patient does have what appears to be venomous snakebite. She did have increasing swelling and therefore CroFab was indicated. I did give her first infusion of CroFab. Swelling seems to be not increasing in comparison to my last recheck of her. I feel that she does require admission due to the amount of swelling and pain that she has with this point. I did discuss this with our surgeon, Dr. Arroyo, who agrees to evaluate the patient for admission. Patient is other medical problems that she takes Keppra 1000mg daily for seizure disorder. She also has Xanax which she says she only takes when needed for anxiety. She has not needed to take the Xanax for a long time according to her. She has not had any recent seizures. She already had her dose of Keppra for the day. Dictation of this chart was performed using voice recognition software; t herefore, there may be some unintended grammatical errors. - Vital Signs Vital signs: Temp Pulse Resp BP Pulse Ox 98.0 F 13 142/100 H 99 09/12/18 21:57 09/13/18 01:00 09/13/18 01:00 09/13/18 01:00 - Laboratory Result Diagrams: 09/12/18 22:09 09/12/18 22:09 Laboratory results interpreted by me: 09/12/18 09/12/18 22:09 22:09 Eosinophils % 6.5 H Carbon Dioxide 31 H Creatinine 0.48 L Total Protein 6.2 L Discharge - Discharge Clinical Impression: Bite, snake, venomous Qualifiers: Encounter type: initial encounter Injury intent: accidental or unintentional Qualified Code(s): T63.001A - Toxic effect of unspecified snake venom, accidental (unintentional), initial encounter Condition: Stable Disposition: ADMITTED INPATIENT Admitting Provider: Surgicalist Referrals: SID ELLIS MD [Primary Care Provider] - Follow up as needed
[2018-09-12 22:57] LABS: ABSOLUTE EOSINOPHILS # (AUTO) 0.4 10^3/uL (0.0-0.6); ABSOLUTE LYMPHOCYTES (AUTO) 1.5 10^3/uL (0.5-4.7); ABSOLUTE MONOCYTES (AUTO) 0.5 10^3/uL (0.1-1.4); BASOPHILS % (AUTO) 0.3 % (0-2); EOSINOPHILS % (AUTO) 6.5 % (0-6); HEMATOCRIT 37.1 % (36.0-47.0); HEMOGLOBIN 12.5 g/dL (12.0-15.5); LYMPHOCYTES % (AUTO) 23.5 % (13-45); MEAN CORPUSCULAR HGB CONC 33.7 g/dL (32.0-36.0); MEAN CORPUSCULAR VOLUME 86 fl (80-97); MONOCYTES % (AUTO) 8.3 % (3-13); PLATELET COUNT 182 10^3/uL (150-450); RED BLOOD COUNT 4.32 10^6/uL (3.72-5.28); SEGMENTED NEUTROPHILS % (AUTO) 61.4 % (42-78); TOTAL CELLS COUNTED % (AUTO) 100 %; WHITE BLOOD COUNT 6.6 10^3/uL (4.0-10.5)
[2018-09-12 23:02] LABS: ALANINE AMINOTRANSFERASE 24 U/L (9-52); ALBUMIN 3.6 g/dL (3.5-5.0); ALKALINE PHOSPHATASE 64 U/L (38-126); ASPARTATE AMINO TRANSFERASE 29 U/L (14-36); BILIRUBIN,DIRECT 0.2 mg/dL (0.0-0.4); BILIRUBIN,TOTAL 0.2 mg/dL (0.2-1.3); BLOOD UREA NITROGEN 7 mg/dL (7-20); CALCIUM 8.5 mg/dL (8.4-10.2); CARBON DIOXIDE 31 mmol/L (22-30); CHLORIDE 102 mmol/L (98-107); GLUCOSE 93 mg/dL (75-110); POTASSIUM 4.4 mmol/L (3.6-5.0); TOTAL PROTEIN 6.2 g/dL (6.3-8.2)
[2018-09-12 23:08] LABS: ANION GAP 5 (5-19); PROTHROMBIN TIME 12.1 SEC (11.4-15.4); SODIUM 137.5 mmol/L (137-145)
[2018-09-12 23:09] LABS: FIBRINOGEN 294 mg/dL (209-497); PARTIAL THROMBOPLASTIN TIME 29.5 SEC (23.5-35.8)
[2018-09-13] MEDS ORDERED: KETAMINE HCL INJ 500 MG/10 ML VIAL IV ONE (00:12)
[2018-09-13] MEDS ORDERED: DEXTROSE 5%-LACTATED RINGERS 1,000 ML IV PRN (01:06)
[2018-09-13] MEDS ORDERED: HYDROMORPHONE HCL INJ/PF 2 MG/ML AMPULE IV PRN (01:09)
[2018-09-13] MEDS ORDERED: ONDANSETRON HCL INJ/PF 4 MG/2 ML SDV IV PRN ×2 (01:22→15:00)
[2018-09-13] MEDS: HYDROMORPHONE HCL INJ/PF 2 MG/ML AMPULE IV PRN ×7 (01:59→23:22)
[2018-09-13] MEDS ORDERED: KETOROLAC TROMETHAMINE INJ/PF 30 MG/1 ML SDV ONE (04:44)
[2018-09-13] MEDS ORDERED: ACETAMINOPHEN 1,000 MG/100 ML RTUPB IV ONE (05:00)
[2018-09-13] MEDS: KETOROLAC TROMETHAMINE INJ/PF 30 MG/1 ML SDV IV SCH ×3 (05:02→21:12)
[2018-09-13 05:27] LABS: ABSOLUTE EOSINOPHILS # (AUTO) 0.4 10^3/uL (0.0-0.6); ABSOLUTE LYMPHOCYTES (AUTO) 1.7 10^3/uL (0.5-4.7); ABSOLUTE MONOCYTES (AUTO) 0.6 10^3/uL (0.1-1.4); ABSOLUTE NEUT (AUTO) 5.3 10^3/uL (1.7-8.2); BASOPHILS % (AUTO) 0.3 % (0-2); HEMOGLOBIN 13.5 g/dL (12.0-15.5); LYMPHOCYTES % (AUTO) 21.2 % (13-45); MEAN CORPUSCULAR HEMOGLOBIN 29.2 pg (27.0-33.4); MEAN CORPUSCULAR HGB CONC 33.9 g/dL (32.0-36.0); MEAN CORPUSCULAR VOLUME 86 fl (80-97); MONOCYTES % (AUTO) 7.3 % (3-13); PLATELET COUNT 213 10^3/uL (150-450); RED BLOOD COUNT 4.64 10^6/uL (3.72-5.28); RED CELL DISTRIBUTION WIDTH 14.4 % (11.5-14.0); SEGMENTED NEUTROPHILS % (AUTO) 66.2 % (42-78); TOTAL CELLS COUNTED % (AUTO) 100 %; WHITE BLOOD COUNT 8.1 10^3/uL (4.0-10.5)
[2018-09-13 05:31] LABS: INTERNATIONAL RATION (INR) 0.94; PROTHROMBIN TIME 12.6 SEC (11.4-15.4)
[2018-09-13 05:32] LABS: FIBRINOGEN 290 mg/dL (209-497); PARTIAL THROMBOPLASTIN TIME 28.3 SEC (23.5-35.8)
[2018-09-13 05:42] LABS: ALANINE AMINOTRANSFERASE 20 U/L (9-52); ALBUMIN 3.4 g/dL (3.5-5.0); ALKALINE PHOSPHATASE 67 U/L (38-126); ASPARTATE AMINO TRANSFERASE 20 U/L (14-36); BILIRUBIN,DIRECT 0.2 mg/dL (0.0-0.4); BILIRUBIN,TOTAL 0.2 mg/dL (0.2-1.3); BLOOD UREA NITROGEN 7 mg/dL (7-20); CALCIUM 8.7 mg/dL (8.4-10.2); GLUCOSE 93 mg/dL (75-110); POTASSIUM 4.6 mmol/L (3.6-5.0); TOTAL PROTEIN 5.7 g/dL (6.3-8.2)
[2018-09-13] MEDS ORDERED: ANTIVENIN,CROTALIDAE FAB(OVIN) INJ 1 VIAL IV ONE (05:45)
[2018-09-13 05:47] LABS: CARBON DIOXIDE 32 mmol/L (22-30); CHLORIDE 102 mmol/L (98-107); SODIUM 137.5 mmol/L (137-145)
--- NOTE | 2018-09-13 05:48 | PDOC H&P ---
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 History of Present Illness: HARRY CONNOLLY is a 32 year old female who was walking in her backyard yesterday afternoon. She was bitten by a snake. She did not see the snake, but she saw 2 puncture wounds on her left foot and experienced severe pain. Patient experienced swelling immediately afterward. The patient presented to the emergency department for evaluation. The patient reports pain and swelling extending up below the knee. She also reports minimal paresthesias over the foot. She rates her pain is 10 out of 10. It is sharp and stabbing. It is unrelenting. Her pain is worse with standing, pressure, movement, and palpation. Pain medications make her pain better. Currently she denies chest pain, shortness of breath, fevers, chills, nausea, vomiting, dizziness, orthostasis, blurry vision, nosebleeds, melena, hematochezia, hematemesis, headache. Patient does have a seizure disorder. Her last seizure was several days ago. She has been out of her seizure medications (Keppra). Past Medical History Neurological Medical History: Reports: Seizures Psychiatric Medical History: Reports: General Anxiety Disorder, Other - Post traumatic stress disorder Past Surgical History Past Surgical History: Reports: Other - D&C Social History Smoking Status: Current Every Day Smoker Hx Recreational Drug Use: No Hx Prescription Drug Abuse: No Family History Family History: CAD, COPD, CVA, Hyperlipidemia, Hypertension Parental Family History Reviewed: Yes Children Family History Reviewed: Yes Sibling(s) Family History Reviewed.: Yes Medication/Allergy Home Medications: Cephalexin Monohydrate [Keflex 500 mg Capsule] 500 mg PO QID #40 capsule 1 03/21/17 Levetiracetam [Keppra] 1,000 mg PO DAILY 01/19/18 Hydrocodone Bit/Acetaminophen [Hydrocodon-Acetaminophen 5-325] 1 each PO Q4H #12 tablet 01/21/18 Valacyclovir HCl [Valtrex 500 Mg Tablet] 2,000 mg PO Q12H #20 tablet 01/21/18 Allergies/Adverse Reactions: No Known Allergies Allergy (Verified 09/07/18 18:17) Review of Systems Constitutional: ABSENT: anorexia, chills, fatigue, fever(s), headache(s), weakness Eyes: ABSENT: visual disturbances Ears: ABSENT: hearing changes Nose, Mouth, and Throat: ABSENT: mouth pain, sore throat Cardiovascular: ABSENT: chest pain, dyspnea on exertion Respiratory: ABSENT: cough Gastrointestinal: ABSENT: abdominal pain, hematemesis, hematochezia, melena, nausea, vomiting Genitourinary: ABSENT: dysuria Musculoskeletal: PRESENT: other - Left lower extremity swelling, pain, and b ruising.. ABSENT: back pain Integumentary: PRESENT: wounds - Snakebite to the left foot. Neurological: PRESENT: paresthesias - Left foot, extending up to the knee.. ABSENT: confusion, dizziness Physical Exam Vital Signs: Temp Pulse Resp BP Pulse Ox 98.0 F 17 128/79 H 93 09/12/18 21:57 09/13/18 04:01 09/13/18 04:01 09/13/18 04:00 Intake & Output 09/11/18 09/12/18 09/13/18 06:59 06:59 06:59 Intake Total 100 Balance 100 Weight 98.9 kg General appearance: PRESENT: no acute distress, cooperative Head exam: PRESENT: atraumatic, normocephalic Eye exam: PRESENT: EOMI, PERRLA. ABSENT: scleral icterus Mouth exam: PRESENT: moist, neck supple Teeth exam: ABSENT: poor dentation Neck exam: ABSENT: meningismus, tenderness, thyromegaly, tracheal deviation Respiratory exam: PRESENT: clear to auscultation scott, unlabored. ABSENT: chest wall tenderness, wheezes Cardiovascular exam: PRESENT: RRR Pulses: PRESENT: normal radial pulses, +2 pedal pulses bilateral Vascular exam: PRESENT: normal capillary refill GI/Abdominal exam: PRESENT: soft. ABSENT: distended, guarding, tenderness Rectal exam: PRESENT: deferred Extremities exam: PRESENT: other - Swelling of the left lower extremity, moderate. Bruising of the left foot. Mild swelling of the left calf. Compartments are soft. Minimal pain with motion. Neurological exam: PRESENT: alert, awake, oriented to person, oriented to place, oriented to time, oriented to situation, other - Motor function of the left lower extremity is intact. Mild paresthesia of the left foot. Compartments are soft. No significant pain with passive motion. Psychiatric exam: PRESENT: anxious. ABSENT: unusual affect Focused psych exam: ABSENT: delusional Skin exam: PRESENT: erythema - Left foot. ABSENT: cyanosis, jaundice Results Laboratory Results: 09/13/18 05:01 09/12/18 09/12/18 09/13/18 22:09 22:09 05:01 WBC 6.6 8.1 RBC 4.32 4.64 Hgb 12.5 13.5 Hct 37.1 40.0 MCV 86 86 MCH 29.0 29.2 MCHC 33.7 33.9 RDW 14.0 14.4 H Plt Count 182 213 Seg Neutrophils % 61.4 66.2 Lymphocytes % 23.5 21.2 Monocytes % 8.3 7.3 Eosinophils % 6.5 H 5.0 Basophils % 0.3 0.3 Absolute Neutrophils 4.0 5.3 Absolute Lymphocytes 1.5 1.7 Absolute Monocytes 0.5 0.6 Absolute Eosinophils 0.4 0.4 Absolute Basophils 0.0 0.0 Sodium 137.5 Potassium 4.4 Chloride 102 Carbon Dioxide 31 H Anion Gap 5 BUN 7 Creatinine 0.48 L Est GFR ( Amer) > 60 Est GFR (Non-Af Amer) > 60 Glucose 93 Calcium 8.5 Total Bilirubin 0.2 AST 29 ALT 24 Alkaline Phosphatase 64 Total Protein 6.2 L Albumin 3.6 Assessment & Plan - Diagnosis (1) Bite, snake, venomous Qualifiers: Encounter type: initial encounter Injury intent: accidental or unintentional Qualified Code(s): T63.001A - Toxic effect of unspecified snake venom, accidental (unintentional), initial encounter Is this a current diagnosis for this admission?: Yes - Plan Summary Plan Summary: This is a 32-year-old female status post snake bite to the left foot. I believe the patient is suffered moderate envenomation. Her coagulation profile is normal. She does have significant swelling and pain of the left foot and left leg. She also reports paresthesias of the foot. Her compartments are soft, and at this time I do not suspect compartment syndrome. The patient received 4 vials of CroFab at approximately midnight. Her symptoms have improved, but not subsided. I will order another 2 vials of CroFab now. Repeat lab work at 6 AM. Continue with IV fluids. Restart home meds. Continue n.p.o. status until symptoms have improved enough that the development of compartment syndrome is unlikely. Further recommendations will depend on the patient's clinical course.
[2018-09-13 05:51] LABS: ANION GAP 4 (5-19)
[2018-09-13] MEDS: ALPRAZOLAM 0.5 MG TABLET PO PRN ×3 (06:51→21:12)
[2018-09-13] MEDS ORDERED: ENOXAPARIN SODIUM INJ 40 MG/0.4 ML DISP.SYRIN SUBCUT SCH (10:00)
[2018-09-13] MEDS: LEVETIRACETAM 500 MG TABLET PO SCH (11:35)
[2018-09-13] MEDS: FAMOTIDINE INJ/PF 20 MG/2 ML SDV IV SCH ×2 (11:36→21:12)
[2018-09-13] MEDS: DEXTROSE 5%-LACTATED RINGERS 1,000 ML IV PRN ×2 (12:15→21:19)
[2018-09-14] MEDS: HYDROMORPHONE HCL INJ/PF 2 MG/ML AMPULE IV PRN ×3 (02:28→15:39)
[2018-09-14] MEDS: KETOROLAC TROMETHAMINE INJ/PF 30 MG/1 ML SDV IV SCH ×2 (07:12→15:44)
[2018-09-14] MEDS: DEXTROSE 5%-LACTATED RINGERS 1,000 ML IV PRN (07:23)
[2018-09-14 09:19] LABS: ABSOLUTE EOSINOPHILS # (AUTO) 0.5 10^3/uL (0.0-0.6); ABSOLUTE LYMPHOCYTES (AUTO) 1.4 10^3/uL (0.5-4.7); ABSOLUTE MONOCYTES (AUTO) 0.6 10^3/uL (0.1-1.4); ABSOLUTE NEUT (AUTO) 4.6 10^3/uL (1.7-8.2); BASOPHILS % (AUTO) 0.2 % (0-2); EOSINOPHILS % (AUTO) 7.4 % (0-6); HEMATOCRIT 38.4 % (36.0-47.0); LYMPHOCYTES % (AUTO) 19.8 % (13-45); MEAN CORPUSCULAR HEMOGLOBIN 29.3 pg (27.0-33.4); MEAN CORPUSCULAR HGB CONC 33.7 g/dL (32.0-36.0); MEAN CORPUSCULAR VOLUME 87 fl (80-97); MONOCYTES % (AUTO) 8.1 % (3-13); PLATELET COUNT 195 10^3/uL (150-450); RED BLOOD COUNT 4.42 10^6/uL (3.72-5.28); RED CELL DISTRIBUTION WIDTH 14.6 % (11.5-14.0); SEGMENTED NEUTROPHILS % (AUTO) 64.5 % (42-78); TOTAL CELLS COUNTED % (AUTO) 100 %; WHITE BLOOD COUNT 7.2 10^3/uL (4.0-10.5)
[2018-09-14 09:28] LABS: INTERNATIONAL RATION (INR) 0.93; PROTHROMBIN TIME 12.5 SEC (11.4-15.4)
[2018-09-14 09:29] LABS: FIBRINOGEN 351 mg/dL (209-497); PARTIAL THROMBOPLASTIN TIME 30.1 SEC (23.5-35.8)
[2018-09-14] MEDS: LEVETIRACETAM 500 MG TABLET PO SCH (09:38)
[2018-09-14] MEDS: FAMOTIDINE INJ/PF 20 MG/2 ML SDV IV SCH (09:38)
[2018-09-14] MEDS: ALPRAZOLAM 0.5 MG TABLET PO PRN (09:38)
[2018-09-14 09:50] LABS: ALANINE AMINOTRANSFERASE 22 U/L (9-52); ALBUMIN 2.8 g/dL (3.5-5.0); ALKALINE PHOSPHATASE 49 U/L (38-126); ANION GAP 6 (5-19); ASPARTATE AMINO TRANSFERASE 18 U/L (14-36); BILIRUBIN,DIRECT 0.2 mg/dL (0.0-0.4); BILIRUBIN,TOTAL 0.3 mg/dL (0.2-1.3); BLOOD UREA NITROGEN 8 mg/dL (7-20); CALCIUM 8.3 mg/dL (8.4-10.2); CARBON DIOXIDE 27 mmol/L (22-30); CHLORIDE 104 mmol/L (98-107); GLUCOSE 86 mg/dL (75-110); POTASSIUM 4.7 mmol/L (3.6-5.0); SODIUM 137.3 mmol/L (137-145); TOTAL PROTEIN 5.1 g/dL (6.3-8.2)
--- NOTE | 2018-09-14 10:06 | PDOC PROGRESS REPORT ---
Subjective Progress Note for:: 09/14/18 Subjective:: Feels okay still with pain in her left foot. No shortness of breath, no chest pain, no nausea or vomiting, no systemic complaints. Reason For Visit: SNAKE BITE Physical Exam Vital Signs: Temp Pulse Resp BP Pulse Ox 98.1 F 88 16 119/55 L 100 09/14/18 00:00 09/14/18 00:00 09/14/18 00:00 09/14/18 00:00 09/14/18 00:00 Intake & Output 09/13/18 09/14/18 09/15/18 06:59 06:59 06:59 Intake Total 100 Balance 100 Weight 98.9 kg 98.2 kg General appearance: PRESENT: no acute distress, cooperative Respiratory exam: PRESENT: clear to auscultation scott Cardiovascular exam: PRESENT: RRR GI/Abdominal exam: PRESENT: other Extremities exam: PRESENT: other - Mild diffuse left foot and lower leg swelling with tenderness of her left foot. Neurovascularly intact distally. Results Laboratory Results: 09/14/18 09:03 09/14/18 09:03 09/14/18 09/14/18 09:03 09:03 WBC 7.2 RBC 4.42 Hgb 13.0 Hct 38.4 MCV 87 MCH 29.3 MCHC 33.7 RDW 14.6 H Plt Count 195 Seg Neutrophils % 64.5 Lymphocytes % 19.8 Monocytes % 8.1 Eosinophils % 7.4 H Basophils % 0.2 Absolute Neutrophils 4.6 Absolute Lymphocytes 1.4 Absolute Monocytes 0.6 Absolute Eosinophils 0.5 Absolute Basophils 0.0 Sodium 137.3 Potassium 4.7 Chloride 104 Carbon Dioxide 27 Anion Gap 6 BUN 8 Creatinine 0.53 Est GFR ( Amer) > 60 Est GFR (Non-Af Amer) > 60 Glucose 86 Calcium 8.3 L Total Bilirubin 0.3 AST 18 ALT 22 Alkaline Phosphatase 49 Total Protein 5.1 L Albumin 2.8 L Assessment & Plan - Diagnosis (1) Bite, snake, venomous Qualifiers: Encounter type: initial encounter Injury intent: accidental or unintentional Qualified Code(s): T63.001A - Toxic effect of unspecified snake venom, accidental (unintentional), initial encounter Is this a current diagnosis for this admission?: Yes Plan: To the foot without systemic symptoms. The swelling ascent appears to have arrested. I do not think she needs any more CroFab. We will continue observation in the hospital with possible discharge either later today or tomorrow.
--- NOTE | 2018-09-14 16:00 | PDOC PROGRESS REPORT ---
Subjective Progress Note for:: 09/14/18 Subjective:: Feels well. Less pain. Less swelling. No systemic complaints. Reason For Visit: SNAKE BITE Physical Exam Vital Signs: Temp Pulse Resp BP Pulse Ox 98.3 F 84 14 116/69 98 09/14/18 07:44 09/14/18 07:44 09/14/18 07:44 09/14/18 07:44 09/14/18 07:44 Intake & Output 09/13/18 09/14/18 09/15/18 06:59 06:59 06:59 Intake Total 100 Balance 100 Weight 98.9 kg 98.2 kg Extremities exam: PRESENT: other - Leg edema and tenderness has improved since this morning. Results Laboratory Results: 09/14/18 09:03 09/14/18 09:03 09/14/18 09/14/18 09:03 09:03 WBC 7.2 RBC 4.42 Hgb 13.0 Hct 38.4 MCV 87 MCH 29.3 MCHC 33.7 RDW 14.6 H Plt Count 195 Seg Neutrophils % 64.5 Lymphocytes % 19.8 Monocytes % 8.1 Eosinophils % 7.4 H Basophils % 0.2 Absolute Neutrophils 4.6 Absolute Lymphocytes 1.4 Absolute Monocytes 0.6 Absolute Eosinophils 0.5 Absolute Basophils 0.0 Sodium 137.3 Potassium 4.7 Chloride 104 Carbon Dioxide 27 Anion Gap 6 BUN 8 Creatinine 0.53 Est GFR ( Amer) > 60 Est GFR (Non-Af Amer) > 60 Glucose 86 Calcium 8.3 L Total Bilirubin 0.3 AST 18 ALT 22 Alkaline Phosphatase 49 Total Protein 5.1 L Albumin 2.8 L Assessment & Plan - Diagnosis (1) Bite, snake, venomous Qualifiers: Encounter type: initial encounter Injury intent: accidental or unintentional Qualified Code(s): T63.001A - Toxic effect of unspecified snake venom, accidental (unintentional), initial encounter Is this a current diagnosis for this admission?: Yes Plan: Doing well. Leg improving. Will discharge patient home.
--- NOTE | 2018-09-14 16:40 | DISCHARGE SUMMARY E ---
Discharge Summary NAME: HARRY CONNOLLY : 1985 AGE: 32Y ADMITTED: 09/13/2018 DISCHARGED: 09/14/2018 DISCHARGE DIAGNOSIS: VENOMOUS SNAKE BITE TO THE LEFT FOOT. HOSPITAL COURSE: The patient was admitted and had administration of CroFab which she tolerated well. She had swelling which went to her knee but the swelling was decreasing and the pain was markedly improving at the time of discharge. She had no systemic symptoms. Her vital signs were stable. Patient is now being discharged to home in good condition. She is to stay active but do partial weightbearing with crutches until pain is significantly improved. She is to avoid driving for the next week. She is to follow up at [facility] in a week. She may resume her home medications. Additional medications, Percocet 1 p.o. q. 4 hours p.r.n. pain. She is to call us for any problems. DICTATING PHYSICIAN: HALEY KHANNA M.D. [id number] Y#: [id number] ID: [id number] JOB#: [id number] ACCT: [id number] cc:HALEY KHANNA M.D. [facility],
[2018-09-14 16:52] VITALS: BP 119/55
== END 2018-09-14 17:21 | disposition home or self-care (01) ==
LOC: ER 21:45 → EH 09-13 01:33 → 5 09-13 13:02
PROVIDERS: ATTEND Surgery
PROC: 3E0334Z Introduction of Serum, Toxoid and Vaccine into Peripheral Vein, Percutaneous Approach (ICD-10-PCS; principal; 2018-09-13)
DX: T63.001A Toxic effect of unspecified snake venom, accidental (unintentional), initial encounter (principal); Y92.007 Garden or yard of unspecified non-institutional (private) residence as the place of occurrence of the external cause; G40.909 Epilepsy, unspecified, not intractable, without status epilepticus; F41.1 Generalized anxiety disorder; F17.200 Nicotine dependence, unspecified, uncomplicated; Z79.899 Other long term (current) drug therapy
CPT/HCPCS: 96376; 99285; 96375; 96365; 36415 ×3; 85025 ×3; 85384 ×3; 85610 ×3; 85730 ×3; 80053 ×3; G0378 ×3; J0840; J3490; J1885 ×2; J1170 ×3; J7121 ×2; S0028 ×2; J0131

== ENCOUNTER 2018-10-04 17:17 | Emergency (ER) | payer OTHER ==
[2018-10-04] MEDS ORDERED: MORPHINE SULFATE 10 MG/ML INJ IV ONE ×2 (18:50→22:10)
--- NOTE | 2018-10-04 18:55 | ER Document Report ---
ED Medical Screen (RME) - General Chief Complaint: Wound Infection Stated Complaint: LEFT LEG PAIN Time Seen by Provider: 10/04/18 18:43 Primary Care Provider: SID ELLIS MD [Primary Care Provider] - Follow up as needed TRAVEL OUTSIDE OF THE [place] IN LAST 30 DAYS: No - HPI Notes: 10/04/18 18:50 Patient is a 32-year-old female who presents complaining of left lower extremity swelling and pain that began this morning. Patient was admitted to the hospital on 12 September for a snakebite x2 to the left foot. She was given CroFab at that time. She has since had a follow-up a week and a half ago with general surgery and states that the swelling had completely resolved she is feeling much better. Patient states that she had no swelling last night as well, but will go up with significant swelling and pain. She has not noticed any red streaking or purulent discharge. She has been able to eat and drink without difficulty. She is urinating normally. Denies drug allergies. Denies DUNN, fever, neck pain, URI, CP, SOB, Abd pain, dysuria, back pain, or rash. I have treated and performed a rapid initial assessment of this patient. A comprehensive ED assessment and evaluation of the patient, analysis of test results and completion of medical decision making process will be conducted by additional ED providers. PHYSICAL EXAMINATION: GENERAL: Well-appearing, well-nourished and in no acute distress. A&Ox4. Answers questions appropriately. LUNGS: Breath sounds clear to auscultation bilaterally and equal. No wheezes rales or rhonchi. HEART: Regular rate and rhythm without murmurs, rubs, gallops. Extremities: LLE has 2+ pitting edema from foot to mid lower leg and 1+/trace proximally. No significant erythema or purulence noted. + tenderness to the me dial dorsal foot near areas of bites. N/V intact distal otherwise with 2+ pulses and <3sec cap refill. Compartments feel soft. NEUROLOGICAL: Normal speech PSYCH: Normal mood, normal affect. - Related Data Allergies/Adverse Reactions: No Known Allergies Allergy (Verified 10/04/18 17:20) Past Medical History Neurological Medical History: Reports: Hx Seizures Renal/ Medical History: Denies: Hx Peritoneal Dialysis Psychiatric Medical History: Denies: Hx Depression Past Surgical History: Reports: Hx Dilation and Curettage - several, Hx Oral Surgery, Other - D&C - Immunizations Immunizations up to date: Yes Hx Diphtheria, Pertussis, Tetanus Vaccination: Yes Physical Exam - Vital signs Vitals: Temp Pulse Resp BP Pulse Ox 98.5 F 101 H 16 122/75 97 10/04/18 17:27 10/04/18 17:27 10/04/18 17:27 10/04/18 17:27 10/04/18 17:27 Course - Vital Signs Vital signs: Temp Pulse Resp BP Pulse Ox 98.5 F 101 H 16 122/75 97 10/04/18 17:27 10/04/18 17:27 10/04/18 17:27 10/04/18 17:27 10/04/18 17:27 Doctor's Discharge - Discharge Referrals: SID ELLIS MD [Primary Care Provider] - Follow up as needed
--- NOTE | 2018-10-04 19:39 | ER Document Report ---
ED General - General Chief Complaint: Wound Infection Stated Complaint: LEFT LEG PAIN Time Seen by Provider: 10/04/18 18:43 Primary Care Provider: SID ELLIS MD [Primary Care Provider] - Follow up as needed LATONYA EARL MD [ACTIVE STAFF] - Follow up as needed TRAVEL OUTSIDE OF THE [place] IN LAST 30 DAYS: No - HPI Notes: Patient is a 32-year-old female that presents to the emergency department for chief complaint of left foot pain and edema. Patient was admitted to the hospital on 09/12/2018 after sustaining a snake bite to her medial left foot. She did have CroFab administered at that time. Patient had complete resolution of her symptoms up until yesterday evening. She states that she started to have pain on the medial aspect of her left foot last night and when she woke up this morning the pain was extending up the dorsal aspect of her foot to her ankle. She states she also has had increased swelling since last night. She denies any pain in her calf or leg. She denies fevers and chills. She denies new injury or bites. She states she went to Dr. Earl's office as a walk-in but he was in surgery and the office referred her to the emergency room for follow-up. Past Medical History: Seizures, anxiety Past Surgical History: Reviewed in chart Social History: Daily tobacco. Denies drug and alcohol use Family History: Reviewed and noncontributory for presenting illness Allergies: Reviewed, see documented allergy list. REVIEW OF SYSTEMS: CONSTITUTIONAL : No fever No chills No diaphoresis No recent illness EENT: No vision changes No congestion No sore throat CARDIOVASCULAR: No chest pain No palpitations RESPIRATORY: No shortness of breath No cough No difficulty breathing GASTROINTESTINAL: No abdominal pain No nausea No vomiting No diarrhea GENITOURINARY: No dysuria No hematuria No difficulty urinating MUSCULOSKELETAL: No back pain Foot pain No arm pain SKIN: No rashes No lesions LYMPHATIC: No swollen, enlarged glands. NEUROLOGICAL: No lightheadedness No headache No weakness No paresthesias PSYCHIATRIC: No anxiety No depression PHYSICAL EXAMINATION: Vital signs reviewed, nursing noted reviewed. GENERAL: Well-appearing, well-nourished and in no acute distress. HEAD: Atraumatic, normocephalic. EYES: Eyes appear normal, extraocular movements intact, sclera anicteric, conjunctiva are normal. ENT: nares patent, oropharynx clear without exudates. Moist mucous membranes. NECK: Normal range of motion, supple without lymphadenopathy LUNGS: Breath sounds clear to auscultation bilaterally and equal. No wheezes rales or rhonchi. HEART: Regular rate and rhythm without murmurs ABDOMEN: Soft, nontender, normoactive bowel sounds. No rebound, guarding, or rigidity. No masses appreciated. EXTREMITIES: Nontender, good range of motion. 1+ right lower extremity pitting edema. 2+ left lower extremity pitting edema extending to below the knee. Medial left foot and dorsal left foot tenderness to palpation without appreciable erythema. No open wounds or drainage NEUROLOGICAL: No focal neurological deficits. Moves all extremities spontaneously Motor and sensory grossly intact on exam. PSYCH: Normal mood, normal affect. SKIN: Warm, Dry, normal turgor, no rashes or lesions noted on exposed skin - Related Data Allergies/Adverse Reactions: No Known Allergies Allergy (Verified 10/04/18 17:20) Past Medical History - Social History Smoking Status: Never Smoker Family History: CAD, COPD, CVA, Hyperlipidemia, Hypertension Patient has suicidal ideation: No Patient has homicidal ideation: No Neurological Medical History: Reports: Hx Seizures Renal/ Medical History: Denies: Hx Peritoneal Dialysis Psychiatric Medical History: Denies: Hx Depression Past Surgical History: Reports: Hx Dilation and Curettage - several, Hx Oral Surgery, Other - D&C - Immunizations Immunizations up to date: Yes Hx Diphtheria, Pertussis, Tetanus Vaccination: Yes Physical Exam - Vital signs Vitals: Temp Pulse Resp BP Pulse Ox 98.5 F 101 H 16 122/75 97 10/04/18 17:27 10/04/18 17:27 10/04/18 17:27 10/04/18 17:27 10/04/18 17:27 Course - Re-evaluation Re-evalutation: 10/04/18 19:39 Vitals reviewed. Nursing notes reviewed. Patient is well-appearing and nontox ic. 10/04/18 21:53 Venous Dopplers negative for DVT. Patient has no elevated WBC count to suggest a new infection. I did discuss her presentation with Dr. Earl who agrees prophylactic antibiotics are not indicated and her symptoms are likely inflammatory in nature. He will follow with her in the office for reevaluation. Patient was given compression stockings and counseled on elevating her leg. Patient will be discharged home in stable condition with return precautions. Laboratory 10/04/18 10/04/18 19:57 19:57 WBC 5.5 RBC 4.32 Hgb 12.6 Hct 37.8 MCV 88 MCH 29.3 MCHC 33.4 RDW 14.3 H Plt Count 221 Seg Neutrophils % 54.3 Lymphocytes % 31.4 Monocytes % 8.6 Eosinophils % 5.2 Basophils % 0.5 Absolute Neutrophils 3.0 Absolute Lymphocytes 1.7 Absolute Monocytes 0.5 Absolute Eosinophils 0.3 Absolute Basophils 0.0 Sodium Cancelled Potassium Cancelled Chloride Cancelled Carbon Dioxide Cancelled Anion Gap Cancelled BUN Cancelled Creatinine Cancelled Est GFR ( Amer) Cancelled Est GFR (Non-Af Amer) Cancelled Glucose Cancelled Calcium Cancelled - Vital Signs Vital signs: Temp Pulse Resp BP Pulse Ox 98.5 F 101 H 16 109/77 97 10/04/18 17:27 10/04/18 17:27 10/04/18 17:27 10/04/18 20:00 10/04/18 17:27 - Laboratory Result Diagrams: 10/04/18 19:57 10/04/18 21:05 Laboratory results interpreted by me: 10/04/18 10/04/18 19:57 21:05 RDW 14.3 H Anion Gap 4 L Discharge - Discharge Clinical Impression: Leg edema, left Condition: Stable Disposition: HOME, SELF-CARE Additional Instructions: Please return to the emergency department if you have any worsening, or concern of your symptoms. Please return to the emergency department if you develop chest pain, difficulty breathing, severe abdominal pain, or ongoing vomiting. Please follow-up with your primary care physician in 2-3 days and any other recommended physicians. If prescribed, take all medications as directed. If you have any questions or concerns do not hesitate to return the emergency department for evaluation. Keep your left leg elevated above the level of your heart as often as possible to limit swelling Wear compression stockings Contact Dr. Earl's office tomorrow to arrange follow-up appointment in the next 2 to 3 days Referrals: SID ELLIS MD [Primary Care Provider] - Follow up as needed LATONYA EARL MD [ACTIVE STAFF] - Follow up as needed
[2018-10-04 20:26] LABS: ABSOLUTE EOSINOPHILS # (AUTO) 0.3 10^3/uL (0.0-0.6); ABSOLUTE LYMPHOCYTES (AUTO) 1.7 10^3/uL (0.5-4.7); ABSOLUTE MONOCYTES (AUTO) 0.5 10^3/uL (0.1-1.4); BASOPHILS % (AUTO) 0.5 % (0-2); EOSINOPHILS % (AUTO) 5.2 % (0-6); HEMATOCRIT 37.8 % (36.0-47.0); HEMOGLOBIN 12.6 g/dL (12.0-15.5); LYMPHOCYTES % (AUTO) 31.4 % (13-45); MEAN CORPUSCULAR HEMOGLOBIN 29.3 pg (27.0-33.4); MEAN CORPUSCULAR HGB CONC 33.4 g/dL (32.0-36.0); MEAN CORPUSCULAR VOLUME 88 fl (80-97); MONOCYTES % (AUTO) 8.6 % (3-13); PLATELET COUNT 221 10^3/uL (150-450); RED BLOOD COUNT 4.32 10^6/uL (3.72-5.28); RED CELL DISTRIBUTION WIDTH 14.3 % (11.5-14.0); SEGMENTED NEUTROPHILS % (AUTO) 54.3 % (42-78); TOTAL CELLS COUNTED % (AUTO) 100 %; WHITE BLOOD COUNT 5.5 10^3/uL (4.0-10.5)
[2018-10-04 21:51] LABS: BLOOD UREA NITROGEN 8 mg/dL (7-20); CALCIUM 8.6 mg/dL (8.4-10.2); GLUCOSE 98 mg/dL (75-110); POTASSIUM 4.4 mmol/L (3.6-5.0)
[2018-10-04 22:00] LABS: ANION GAP 4 (5-19); CARBON DIOXIDE 27 mmol/L (22-30); CHLORIDE 106 mmol/L (98-107)
[2018-10-04 22:20] VITALS: BP 114/76
--- NOTE | 2018-10-05 07:43 | XCELERA REPORT ---
[address] [place] [facility] [id number] Lower Extremity Venous Evaluation Procedure: Color flow and duplex imaging of the veins of the left lower extremity as well as the right Common Femoral vein. Right Sided Venous Evaluation The right common femoral vein is fully compressible. Spontaneous and phasic flow is present in the right common femoral vein. Left Sided Venous Evaluation Normal vessel filling wall to wall, compression and augmentation as well as Colour flow down to the infrageniculate veins. Interpretation Summary No duplex evidence of DVT or obstruction in the left lower extremity nor in the right Common Femoral vein. Name: HARRY CONNOLLY Daylin Age: 32 yrs Gender: Female : 1985 Patient Status: Emergency Patient Location: ER Study Date: 10/04/2018 07:16 PM Reason For Study: LLE swelling Ordering Physician: ISSA DE JESUS Performed By: America Álvarez : ISSA DE JESUS > Lux Parsons
== END 2018-10-04 22:30 | disposition home or self-care (01) ==
LOC: ER 17:17
DX: R60.9 Edema, unspecified (principal); M79.672 Pain in left foot; F41.9 Anxiety disorder, unspecified; F17.210 Nicotine dependence, cigarettes, uncomplicated
CPT/HCPCS: 96376; 99284; 96374; 36415; 85025; 80048; 93971 ×2; J2270

== ENCOUNTER 2018-10-27 22:46 | Emergency (ER) | payer OTHER ==
[2018-10-28 00:31] VITALS: BP 125/67
[2018-10-28] MEDS ORDERED: DEXAMETHASONE SOD PHOS INJ 10 MG/1 ML VIAL IM ONE (00:49)
[2018-10-28] MEDS ORDERED: DIAZEPAM 5 MG TABLET PO ONE (00:50)
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
== END 2018-10-28 01:36 | disposition left against medical advice (07) ==
LOC: ER 22:46
DX: M54.2 Cervicalgia (principal); M54.5 Low back pain; R55 Syncope and collapse; R51 Headache; V43.62XA Car passenger injured in collision with other type car in traffic accident, initial encounter; Y93.89 Activity, other specified; R56.9 Unspecified convulsions; Z79.899 Other long term (current) drug therapy; Z53.20 Procedure and treatment not carried out because of patient's decision for unspecified reasons
CPT/HCPCS: 96372; 99283; J1100

== ENCOUNTER 2018-12-19 14:41 | Emergency (ER) | payer OTHER ==
--- NOTE | 2018-12-19 15:07 | ER Document Report ---
ED Medical Screen (RME) - General Chief Complaint: Anxiety Stated Complaint: DIFFICULTY BREATHING Time Seen by Provider: 12/19/18 15:03 Primary Care Provider: SID ELLIS MD [Primary Care Provider] - Follow up as needed Mode of Arrival: Ambulatory Information source: Patient Notes: Patient presents reporting that her father 1 week ago. Patient c omplains of increased anxiety depression and insomnia. Patient denies any suicidal homicidal ideation. I have greeted and performed a rapid initial assessment of this patient. A comprehensive ED assessment and evaluation of the patient, analysis of test results and completion of the medical decision making process will be conducted by additional ED providers. TRAVEL OUTSIDE OF THE [place] IN LAST 30 DAYS: No - Related Data Allergies/Adverse Reactions: No Known Allergies Allergy (Verified 12/19/18 15:02) Past Medical History - Social History Frequency of alcohol use: None Drug Abuse: None Neurological Medical History: Reports: Hx Seizures Renal/ Medical History: Denies: Hx Peritoneal Dialysis Psychiatric Medical History: Denies: Hx Depression Past Surgical History: Reports: Hx Dilation and Curettage - several, Hx Oral Surgery, Other - D&C - Immunizations Immunizations up to date: Yes Hx Diphtheria, Pertussis, Tetanus Vaccination: Yes Physical Exam - Psychological Associated symptoms: Flat affect Doctor's Discharge - Discharge Referrals: SID ELLIS MD [Primary Care Provider] - Follow up as needed
--- NOTE | 2018-12-19 15:40 | EKG REPORT ---
SEVERITY:- BORDERLINE ECG - SINUS TACHYCARDIA PROBABLE LEFT ATRIAL ABNORMALITY : Confirmed by: Alistair Moulton MD 19-Dec-2018 15:39:47
[2018-12-19 15:41] LABS: APPEARANCE,URINE SLIGHTLY-CLOUDY; BILIRUBIN,URINE NEGATIVE (NEGATIVE); COLOR,URINE YELLOW; GLUCOSE, URINE NEGATIVE (NEGATIVE); KETONES,URINE NEGATIVE (NEGATIVE); LEUKOCYTE ESTERASE,URINE TRACE (NEGATIVE); NITRITE,URINE NEGATIVE (NEGATIVE); PROTEIN,URINE NEGATIVE (NEGATIVE); URINE SPECIFIC GRAVITY 1.018; UROBILINOGEN,URINE NEGATIVE mg/dL (<2.0)
[2018-12-19 15:59] LABS: ABSOLUTE EOSINOPHILS # (AUTO) 0.2 10^3/uL (0.0-0.6); ABSOLUTE LYMPHOCYTES (AUTO) 1.6 10^3/uL (0.5-4.7); ABSOLUTE MONOCYTES (AUTO) 0.5 10^3/uL (0.1-1.4); ABSOLUTE NEUT (AUTO) 3.9 10^3/uL (1.7-8.2); BASOPHILS % (AUTO) 0.4 % (0-2); EOSINOPHILS % (AUTO) 2.4 % (0-6); HEMATOCRIT 36.8 % (36.0-47.0); HEMOGLOBIN 12.3 g/dL (12.0-15.5); LYMPHOCYTES % (AUTO) 25.6 % (13-45); MEAN CORPUSCULAR HEMOGLOBIN 28.8 pg (27.0-33.4); MEAN CORPUSCULAR HGB CONC 33.4 g/dL (32.0-36.0); MEAN CORPUSCULAR VOLUME 86 fl (80-97); MONOCYTES % (AUTO) 8.2 % (3-13); PLATELET COUNT 229 10^3/uL (150-450); RED BLOOD COUNT 4.27 10^6/uL (3.72-5.28); RED CELL DISTRIBUTION WIDTH 13.8 % (11.5-14.0); SEGMENTED NEUTROPHILS % (AUTO) 63.4 % (42-78); TOTAL CELLS COUNTED % (AUTO) 100 %; WHITE BLOOD COUNT 6.1 10^3/uL (4.0-10.5)
[2018-12-19 16:02] LABS: URINE AMPHETAMINES SCREEN NEGATIVE; URINE BARBITURATES SCREEN NEGATIVE; URINE BENZODIAZEPINES SCREEN UNCONFIRMED POSITIVE; URINE COCAINE SCREEN NEGATIVE; URINE MARIJUANA (THC) SCREEN NEGATIVE; URINE METHADONE SCREEN UNCONFIRMED POSITIVE; URINE PHENCYCLIDINE SCREEN NEGATIVE
[2018-12-19 16:11] LABS: ACETAMINOPHEN 19 ug/mL (10-30); ALBUMIN 3.4 g/dL (3.5-5.0); ALKALINE PHOSPHATASE 82 U/L (38-126); ANION GAP 6 (5-19); ASPARTATE AMINO TRANSFERASE 22 U/L (14-36); BLOOD UREA NITROGEN 13 mg/dL (7-20); CALCIUM 8.7 mg/dL (8.4-10.2); CARBON DIOXIDE 26 mmol/L (22-30); CHLORIDE 107 mmol/L (98-107); GLUCOSE 98 mg/dL (75-110); POTASSIUM 4.4 mmol/L (3.6-5.0); TOTAL PROTEIN 5.9 g/dL (6.3-8.2)
[2018-12-19 16:13] LABS: BILIRUBIN,TOTAL < 0.1 mg/dL (0.2-1.3)
[2018-12-19 16:14] LABS: ALCOHOL < 10 mg/dL (NONE DETECTED); SALICYLATE < 1.0 mg/dL (2.0-20.0)
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
--- NOTE | 2018-12-19 18:58 | PSYCHOLOGICAL NOTE ---
Psych Note - Psych Note Date seen by psych provider: 12/19/18 Time seen by psych provider: 04:15 Psych Note: Date seen: 12/19/2018 Time seen by psych: 4:15 Psych Note: Reason for consult: Anxiety Patient arrived to ED via POV. Patient was laying on gurney challenging to arouse. Patient was able to be aroused after rubbing clipboard repeatedly on her foot. Patient complained of increased anxiety due to moving and the dogs. Clinician observed patient exhibited pinpoint pupils, slurred speech, and signs of intoxication. As clinician was meeting with patient, attending ER physician made clinicians aware of the results from patients drug screen. Patients drug screen was positive for Methadone and benzodiazepines. Patient denied use of methadone and buprenorphine. Patient reported extreme anxiety and prescription use of Xanax (40MG) and Celexa. Patient reported mental health diagnoses of Bipolar 1, PTSD, Anxiety, and ADHD. Patient denied SI/HI. Attending ER physician confronted patient over recent prescription history (re viewed [place] Controlled Substance Registry), including the very recent prescription refill of a Xanax. Patient did not have prescription for Methadone in registry. Patient became agitated at this point and left AMA. Clinicians observed patient walk out of ED and enter the passenger side of POV. DSM-5 Diagnosis: Polysubstance Use Medication recommendations per [facility] contracted psychiatrist Dr. Ailyn MD are as follows: No medication recommendations at this time Impression/Plan: Patient left AMA
== END 2018-12-19 16:55 | disposition home or self-care (01) ==
LOC: ER 14:41
DX: F19.10 Other psychoactive substance abuse, uncomplicated (principal); Z76.5 Malingerer [conscious simulation]; K08.89 Other specified disorders of teeth and supporting structures; R47.81 Slurred speech; F17.200 Nicotine dependence, unspecified, uncomplicated
CPT/HCPCS: 36415; 80053; 80307; 81001; 84703; 85025; 93005; 93010; 99284

== ENCOUNTER 2019-02-14 11:46 | Emergency (ER) | payer OTHER, MEDICAID ==
[2019-02-14] MEDS ORDERED: IBUPROFEN 800 MG TABLET PO ONE (12:13)
--- NOTE | 2019-02-14 12:32 | ER Document Report ---
HPI - HPI Time Seen by Provider: 02/14/19 12:12 - REPRODUCTIVE Reproductive: DENIES: : Past Medical History - Social History Family History: CAD, COPD, CVA, Hyperlipidemia, Hypertension Neurological Medical History: Reports: Hx Seizures Renal/ Medical History: Denies: Hx Peritoneal Dialysis Psychiatric Medical History: Denies: Hx Depression Past Surgical History: Reports: Hx Dilation and Curettage - several, Hx Oral Surgery, Other - D&C - Immunizations Immunizations up to date: Yes Hx Diphtheria, Pertussis, Tetanus Vaccination: Yes Vertical Provider Document - CONSTITUTIONAL Agree With Documented VS: Yes Exam Limitations: No Limitations General Appearance: WD/WN Notes: drowsy - INFECTION CONTROL TRAVEL OUTSIDE OF THE [place] IN LAST 30 DAYS: No - HEENT HEENT: Atraumatic, Normocephalic - NECK Neck: Normal Inspection - RESPIRATORY Respiratory: Breath Sounds Normal, No Respiratory Distress - CARDIOVASCULAR Cardiovascular: Regular Rate, Regular Rhythm - MUSCULOSKELETAL/EXTREMETIES Musculoskeletal/Extremeties: Tender - Right fourth finger tenderness with erythema around the ring and crusted drainage, Edema - 3+ edema around the ring of the right fourth finger, 1+ edema extends to the dorsum of the right hand - NEURO Level of Consciousness: Awake - Drowsy, responds easily to voice Motor/Sensory: No Motor Deficit - DERM Integumentary: Warm, Dry Notes: Erythema around proximal phalanx of right fourth finger Course - Vital Signs Vital signs: Temp Pulse Resp BP Pulse Ox 97.9 F 98 18 127/86 H 94 02/14/19 11:57 02/14/19 11:57 02/14/19 11:57 02/14/19 11:57 02/14/19 11:57 Discharge - Discharge Clinical Impression: ring removal from finger Referrals: SID ELLIS MD [Primary Care Provider] - Follow up as needed
--- NOTE | 2019-02-14 12:53 | ER Document Report ---
ED Medical Screen (RME) - General Chief Complaint: Finger Injury Stated Complaint: HAND INJURY - RIGHT Time Seen by Provider: 02/14/19 12:12 Primary Care Provider: SID ELLIS MD [Primary Care Provider] - Follow up as needed Mode of Arrival: Ambulatory Information source: Patient Notes: Patient with swelling to the right fourth finger for the past week. Patient has been unable to remove the ring to the fourth finger and the swelling has started to worsen. Patient has tried multiple [id number] attempts to remove the ring. Patient with erythema and crusting drainage around the ring. I have greeted and performed a rapid initial assessment of this patient. A comprehensive ED assessment and evaluation of the patient, analysis of test results and completion of the medical decision making process will be conducted by additional ED providers. TRAVEL OUTSIDE OF THE [place] IN LAST 30 DAYS: No - Related Data Allergies/Adverse Reactions: No Known Allergies Allergy (Verified 12/19/18 15:02) Past Medical History Neurological Medical History: Reports: Hx Seizures Renal/ Medical History: Denies: Hx Peritoneal Dialysis Psychiatric Medical History: Denies: Hx Depression Past Surgical History: Reports: Hx Dilation and Curettage - several, Hx Oral Surgery, Other - D&C - Immunizations Immunizations up to date: Yes Hx Diphtheria, Pertussis, Tetanus Vaccination: Yes Physical Exam - Vital signs Vitals: Temp Pulse Resp BP Pulse Ox 97.9 F 98 18 127/86 H 94 02/14/19 11:57 02/14/19 11:57 02/14/19 11:57 02/14/19 11:57 02/14/19 11:57 - General Notes: Patient drowsy, arouses easily to voice. Patient with significant swelling with embedded ring to right fourth finger. RN unable to use ring cutter to get underneath the ring for removal Course - Vital Signs Vital signs: Temp Pulse Resp BP Pulse Ox 97.9 F 98 18 127/86 H 94 02/14/19 12:41 02/14/19 11:57 02/14/19 12:41 02/14/19 11:57 02/14/19 12:41 Doctor's Discharge - Discharge Clinical Impression: ring removal from finger Referrals: SID ELLIS MD [Primary Care Provider] - Follow up as needed
[2019-02-14 13:42] LABS: ABSOLUTE EOSINOPHILS # (AUTO) 0.2 10^3/uL (0.0-0.6); ABSOLUTE LYMPHOCYTES (AUTO) 1.8 10^3/uL (0.5-4.7); ABSOLUTE MONOCYTES (AUTO) 0.4 10^3/uL (0.1-1.4); ABSOLUTE NEUT (AUTO) 2.9 10^3/uL (1.7-8.2); BASOPHILS % (AUTO) 0.5 % (0-2); EOSINOPHILS % (AUTO) 3.7 % (0-6); HEMATOCRIT 42.6 % (36.0-47.0); HEMOGLOBIN 14.3 g/dL (12.0-15.5); LYMPHOCYTES % (AUTO) 34.2 % (13-45); MEAN CORPUSCULAR HEMOGLOBIN 29.3 pg (27.0-33.4); MEAN CORPUSCULAR HGB CONC 33.7 g/dL (32.0-36.0); MEAN CORPUSCULAR VOLUME 87 fl (80-97); MONOCYTES % (AUTO) 6.9 % (3-13); PLATELET COUNT 275 10^3/uL (150-450); RED BLOOD COUNT 4.89 10^6/uL (3.72-5.28); RED CELL DISTRIBUTION WIDTH 14.2 % (11.5-14.0); SEGMENTED NEUTROPHILS % (AUTO) 54.7 % (42-78); TOTAL CELLS COUNTED % (AUTO) 100 %; WHITE BLOOD COUNT 5.3 10^3/uL (4.0-10.5)
[2019-02-14 14:00] LABS: ANION GAP 11 (5-19); BLOOD UREA NITROGEN 11 mg/dL (7-20); CARBON DIOXIDE 27 mmol/L (22-30); CHLORIDE 104 mmol/L (98-107); GLUCOSE 141 mg/dL (75-110)
[2019-02-14] MEDS ORDERED: AMPICILLIN SOD/SULBACTAM 3 GM VIAL IV ONE ×2 (17:55→19:15)
[2019-02-14] MEDS ORDERED: ONDANSETRON HCL INJ/PF 4 MG/2 ML SDV IV ONE (17:55)
[2019-02-14] MEDS ORDERED: FENTANYL CITRATE INJ/PF 100 MCG/2 ML AMPUL IV PRN (17:56)
--- NOTE | 2019-02-14 18:09 | ER Document Report ---
ED General - General Chief Complaint: Finger Injury Stated Complaint: HAND INJURY - RIGHT Time Seen by Provider: 02/14/19 12:12 Primary Care Provider: SID ELLIS MD [Primary Care Provider] - Follow up as needed Mode of Arrival: Ambulatory Notes: Ms. Parikh is a 33-year-old female with a chief complaint of painful swelling of her right ring finger with ring strangulating circulation which is been present for 2 weeks. Patient has been unsuccessful in getting her ring off at home. S he feels generally ill and mildly nauseated but has not vomited. She denies fever chills. Last oral intake was greater than 6 hours ago. Patient has normal allergies. Takes no regular medications. Last menses described as normal 2 weeks ago. No prior surgery. We note the patient was initially seen by mid-level provider and attempts to remove the ring using a ring cutter were totally unsuccessful due to the degree of edema with inability to adequately place the cutting blade. TRAVEL OUTSIDE OF THE [place] IN LAST 30 DAYS: No - Related Data Allergies/Adverse Reactions: No Known Allergies Allergy (Verified 12/19/18 15:02) Past Medical History - General Information source: Patient, Relative - Social History Smoking Status: Current Every Day Smoker Family History: CAD, COPD, CVA, Hyperlipidemia, Hypertension Patient has suicidal ideation: No Patient has homicidal ideation: No Neurological Medical History: Reports: Hx Seizures Renal/ Medical History: Denies: Hx Peritoneal Dialysis Psychiatric Medical History: Denies: Hx Depression Past Surgical History: Reports: Hx Dilation and Curettage - several, Hx Oral Surgery, Other - D&C - Immunizations Immunizations up to date: Yes Hx Diphtheria, Pertussis, Tetanus Vaccination: Yes Review of Systems - Review of Systems Notes: Constitutional: Negative for fever. HENT: Negative for sore throat. Eyes: Negative for visual changes. Cardiovascular: Negative for chest pain. Respiratory: Negative for shortness of breath. Gastrointestinal: Negative for abdominal pain, vomiting or diarrhea. Genitourinary: Negative for dysuria. Musculoskeletal: As per HPI. Skin: Negative for rash. Neurological: Negative for headaches, weakness or numbness. 10 point ROS negative except as marked above and in HPI. Physical Exam - Vital signs Vitals: Temp Pulse Resp BP Pulse Ox 97.9 F 98 18 127/86 H 94 02/14/19 11:57 02/14/19 11:57 02/14/19 11:57 02/14/19 11:57 02/14/19 11:57 - Notes Notes: GENERAL: Female patient of approximately stated age appearing very uncomfortable rating pain 8/10 right now. SKIN: Good turgor no rashes. HEAD: Normocephalic atraumatic. EYES: PERRLA. Conjunctivae and sclerae clear. EARS: CANALS AND TMS CLEAR. NOSE: CLEAR. MOUTH: Moist mucosa. Good dentition. No stridor or edema. No drooling. NECK: Supple. No masses or thyromegaly. No adenopathy. Carotids 2+ without bruits. No JVD. BACK: Symmetrical without tenderness. CHEST: Respirations unlabored. Breath sounds clear and symmetrical. HEART: Regular rhythm. No murmur gallop or rub. ABDOMEN: Soft nontender without masses, organomegaly or rebound. Bowel sounds normally active. No bruits. GENITALIA: Deferred. EXTREMITIES: 2+ edema of the dorsum of the right hand and 3+ edema of the ring finger distal to a constricting ring on the proximal phalanx. She has redness and a malodorous discharge in this area. There is exquisitely tender. NEUROLOGICAL: GCS 15. Alert and oriented x3. Fluent speech. Cranial nerves II through XII intact. Sensorimotor and cerebellar normal. Normal tone. Psychiatric: Anxious. Course - Re-evaluation Re-evalutation: 02/14/19 18:09 I was not able to get a ring cutter into appropriate position to remove the ring. I consulted Dr. Haynes from surgery. He saw the patient for consultation and subsequently was able to get a ring cutter on and remove the ring. I will give the patient a dose of IV Unasyn here and anticipate discharge home on oral antibiotics and soaks and follow-up with primary care provider. - Vital Signs Vital signs: Temp Pulse Resp BP Pulse Ox 97.2 F 118 H 18 123/95 H 100 02/14/19 15:10 02/14/19 15:10 02/14/19 15:10 02/14/19 15:10 02/14/19 15:10 - Laboratory Result Diagrams: 02/14/19 13:21 02/14/19 13:21 Laboratory results interpreted by me: 02/14/19 02/14/19 13:21 13:21 RDW 14.2 H Glucose 141 H Discharge - Discharge Clinical Impression: ring removal from finger, Cellulitis of finger of right hand Condition: Stable Disposition: HOME, SELF-CARE Additional Instructions: Soak hand in warm salt water 3 times a day for 20 minutes. Return here as needed for new or worsening symptoms See your primary care doctor within the next 2 days for follow-up. Take prescribed medication as instructed. Tylenol or ibuprofen as needed for pain. Prescriptions: Cephalexin Monohydrate [Keflex 500 mg Capsule] 500 mg PO Q6H 10 Days #40 capsule Referrals: SID ELLIS MD [Primary Care Provider] - Follow up as needed
--- NOTE | 2019-02-14 18:20 | PDOC CONSULTATION ---
Consultation Consult Date: 02/14/19 Attending physician:: TEMO FIGUEROA Provider Consulted: NESS ESCALERA Consult reason:: Ring stuck on right fourth finger History of Present Illness Admission Date/PCP: SID ELLIS MD Patient complains of: Ring stuck on finger History of Present Illness: HARRY CONNOLLY is a 33 year old female Comes to the emergency department via ground rescue complaining of a two-week history of a ring stuck on the base of her right fourth finger. Tried multiple [id number] maneuvers but were unsuccessful. She was seen in the emergency department where an attempt was made by the nursing staff to remove the finger with a ring cutter but were unsuccessful. Surgery was consulted. Patient developed swelling of both hands. She has a history of rings getting stuck on fingers in the past. Past Medical History Past Medical History: Anxiety disorder Medical History: None Neurological Medical History: Reports: Seizures Psychiatric Medical History: Denies: Depression Past Surgical History Past Surgical History: Reports: None, Other - D&C Social History Information Source: Patient Smoking Status: Current Every Day Smoker Frequency of Alcohol Use: None Hx Recreational Drug Use: No Hx Prescription Drug Abuse: No Family History Family History: None, CAD, COPD, CVA, Hyperlipidemia, Hypertension Parental Family History Reviewed: No Children Family History Reviewed: No Sibling(s) Family History Reviewed.: No Medication/Allergy Home Medications: Alprazolam [Xanax] 1 mg PO BIDP PRN 09/13/18 Aripiprazole [Abilify 15 mg Tablet] 15 mg PO DAILY 09/13/18 Buprenorphine HCl/Naloxone HCl [Buprenorp-Nalox 8-2 mg Sl Film] 2 each SL DAILY 09/13/18 Dextroamphetamine/Amphetamine [Dextroamp-Amphetamin 30 mg Tab] 30 mg PO BID 09/13/18 Levetiracetam [Keppra] 1,000 mg PO Q12 MDD LAST FILL 12/201709/13/18 Oxycodone HCl/Acetaminophen [Percocet 5-325 mg Tablet] 1 tab PO ASDIR PRN #15 tablet 09/14/18 Cyclobenzaprine HCl [Flexeril 10 mg Tablet] 10 mg PO TIDP PRN #15 tab 10/28/18 Cephalexin Monohydrate [Keflex 500 mg Capsule] 500 mg PO Q6H 10 Days #40 capsule 02/14/19 Allergies/Adverse Reactions: No Known Allergies Allergy (Verified 12/19/18 15:02) Review of Systems Constitutional: PRESENT: as per HPI Eyes: ABSENT: visual disturbances Ears: ABSENT: hearing changes Cardiovascular: ABSENT: chest pain, dyspnea on exertion, edema, orthropnea, palpitations Physical Exam Vital Signs: Temp Pulse Resp BP Pulse Ox 97.2 F 118 H 18 123/95 H 100 02/14/19 15:10 02/14/19 15:10 02/14/19 15:10 02/14/19 15:10 02/14/19 15:10 Intake & Output 02/13/19 02/14/19 02/15/19 06:59 06:59 06:59 Weight 94.5 kg General appearance: PRESENT: mild distress, other - Tearful Eye exam: PRESENT: other - Eyelash extensions Neck exam: PRESENT: full ROM Cardiovascular exam: PRESENT: RRR Pulses: PRESENT: normal carotid pulses GI/Abdominal exam: PRESENT: soft Extremities exam: PRESENT: other - Hands examined. Multiple rings on both hands. There is a narrow ring circumferential at the base of the right fourth finger with the soft tissue proximal and distal to the ring very edematous with mild violaceous discoloration of the skin. Results Laboratory Results: 02/14/19 13:21 02/14/19 13:21 02/14/19 02/14/19 13:21 13:21 WBC 5.3 RBC 4.89 Hgb 14.3 Hct 42.6 MCV 87 MCH 29.3 MCHC 33.7 RDW 14.2 H Plt Count 275 Seg Neutrophils % 54.7 Sodium 141.8 Potassium 4.0 Chloride 104 Carbon Dioxide 27 Anion Gap 11 BUN 11 Creatinine 0.67 Est GFR ( Amer) > 60 Glucose 141 H Calcium 9.0 Assessment & Plan - Diagnosis (1) Foreign body of finger of right hand Is this a current diagnosis for this admission?: Yes Plan: Impression: Subacute trauma to the right fourth finger secondary to ring embedded at the base of web space, unable to be removed, with underlying skin threatened Recommendations: 1. With the patient's cooperation, we were able to successfully remove the ring using the bedside hand driven ring cutter. Post procedure, there was significant indentation to the subcutaneous tissue, and likely nonviable underlying skin; however there was no evidence of significant trauma to the finger as a result of the procedure. There was no evidence of soft tissue infection. 2. We recommended post procedure antibiotics, local wound care with the soapy water wash and Xeroform dressings. We recommended the patient not wear her rings as they have caused previous problems in the past. 3. Patient can follow-up with the emergency department on a as needed basis. (2) Smoker Is this a current diagnosis for this admission?: Yes - Time Time Spent: 50 to 70 Minutes
[2019-02-14 19:03] VITALS: BP 128/85
[2019-02-14] MEDS ORDERED: AMPICILLIN SODIUM/SULBACTAM NA 3 GM in NORMAL SALINE 100 ML IV ONE (19:15)
== END 2019-02-14 19:15 | disposition home or self-care (01) ==
LOC: ER 11:46
DX: L03.011 Cellulitis of right finger (principal); S69.91XA Unspecified injury of right wrist, hand and finger(s), initial encounter; W49.04XA Ring or other jewelry causing external constriction, initial encounter; R11.0 Nausea; F17.200 Nicotine dependence, unspecified, uncomplicated
CPT/HCPCS: 99284; 96375; 96365; 36415; 85025; 80048; J3010; J0295; J2405

== ENCOUNTER 2019-05-24 06:44 | Emergency (ER) | payer MEDICAID, OTHER ==
[2019-05-24 07:28] LABS: ABSOLUTE EOSINOPHILS # (AUTO) 0.1 10^3/uL (0.0-0.6); ABSOLUTE LYMPHOCYTES (AUTO) 1.2 10^3/uL (0.5-4.7); ABSOLUTE MONOCYTES (AUTO) 0.9 10^3/uL (0.1-1.4); ABSOLUTE NEUT (AUTO) 6.9 10^3/uL (1.7-8.2); BASOPHILS % (AUTO) 0.5 % (0-2); EOSINOPHILS % (AUTO) 1.3 % (0-6); HEMATOCRIT 40.9 % (36.0-47.0); MEAN CORPUSCULAR HEMOGLOBIN 29.5 pg (27.0-33.4); MEAN CORPUSCULAR HGB CONC 34.3 g/dL (32.0-36.0); MEAN CORPUSCULAR VOLUME 86 fl (80-97); MONOCYTES % (AUTO) 10.2 % (3-13); PLATELET COUNT 230 10^3/uL (150-450); RED BLOOD COUNT 4.77 10^6/uL (3.72-5.28); RED CELL DISTRIBUTION WIDTH 14.5 % (11.5-14.0); TOTAL CELLS COUNTED % (AUTO) 100 %; WHITE BLOOD COUNT 9.2 10^3/uL (4.0-10.5)
[2019-05-24 07:50] LABS: ALBUMIN 3.8 g/dL (3.5-5.0); ALKALINE PHOSPHATASE 76 U/L (38-126); ANION GAP 9 (5-19); ASPARTATE AMINO TRANSFERASE 19 U/L (14-36); BILIRUBIN,TOTAL 0.3 mg/dL (0.2-1.3); BLOOD UREA NITROGEN 7 mg/dL (7-20); CALCIUM 8.9 mg/dL (8.4-10.2); CARBON DIOXIDE 24 mmol/L (22-30); CHLORIDE 100 mmol/L (98-107); GLUCOSE 138 mg/dL (75-110); POTASSIUM 4.1 mmol/L (3.6-5.0); TOTAL PROTEIN 6.6 g/dL (6.3-8.2)
--- NOTE | 2019-05-24 09:34 | RADIOLOGY REPORT (SQ) ---
EXAM DESCRIPTION: U/S OB TRANSVAGINAL W/O DOP COMPLETED DATE/TIME: 05/24/2019 9:18 am REASON FOR STUDY: 12 wks, cramps, bleeding COMPARISON: None. TECHNIQUE: Transabdominal static and realtime grayscale images acquired of the pelvis. Additional se lected spectral and color Doppler images recorded. All images stored on PACs. CLINICAL AGE: 12 week 2 day. [facility]. LIMITATIONS: None. FINDINGS: UTERUS: No visualized intrauterine . Endometrial thickness is 2.4 cm. RIGHT ADNEXA: Ovary not identified due to poor acoustical window. No adnexal free fluid. No adnexal masses. LEFT ADNEXA: Ovary not identified due to poor acoustical window. No adnexal free fluid. No adnexal masses. FREE FLUID: None. OTHER: No other significant finding. IMPRESSION: NO VISUALIZED INTRA- OR EXTRAUTERINE . DURING THE TIME THE PATIENT WAS IN THE ULTRASOUND ROOM SHE REPORTEDLY PASSED A LARGE AMOUNT OF TISSUE WHICH WAS COLLECTED BY THE NURSE AND TAKEN TO THE LABORATORY. FINDINGS MOST CONSISTENT WITH SPONTANEOUS . NO RESIDUAL PRODUCTS IDENTIFIED. TECHNICAL DOCUMENTATION: JOB ID: [id number] 2010 [employer]- All Rights Reserved Reading location - IP/workstation name: [email or web address]
[2019-05-24] MEDS ORDERED: KETOROLAC TROMETHAMINE INJ/PF 30 MG/1 ML SDV IV ONE (09:44)
--- NOTE | 2019-05-24 10:02 | ER Document Report ---
Entered by DELFINA TONY SCRIBE 05/24/19 0709 Acting as scribe for:JOSUE LINDSEY MD ED GI/ - General Chief Complaint: OB Problem (>20wk) Stated Complaint: POSSIBLE MISCARRIAGE Time Seen by Provider: 05/24/19 07:07 Primary Care Provider: SID ELLIS MD [Primary Care Provider] - Follow up as needed Mode of Arrival: Wheelchair Information source: Patient Notes: This 33 year old female patient presents to the emergency department today with complaints of a possible miscarriage. Patient states her last menstrual period was on 02/25/19, making her approximately 12 weeks by dates. Patient has had multiple D&Cs in the past and is A2 per history. at bedside reports that the patient began bleeding this morning at 6:00 AM and has been having associated abdominal cramping as well as passing tissue. Patient reports that she has been receiving [facility] and has not had an ultrasound during this . External pharmacy records reveal that the patient is on a multitude of large dosed controlled substances including Adderall, alprazolam, Subutex, lorazepam, Vyvanse, Suboxone, and Lunesta. Patient indicates that she has been on subutex since March of 2019 although the database indicates that this is not true, she has been getting it at least since May of 2018. Blood Type: O+ TRAVEL OUTSIDE OF THE [place] IN LAST 30 DAYS: No - Related Data Allergies/Adverse Reactions: No Known Allergies Allergy (Verified 12/19/18 15:02) Past Medical History - General Information source: Patient, PENDING SALE TO [facility] Records - Social History Smoking Status: Current Some Day Smoker Drug Abuse: Prescription drugs Occupation: unemployed Lives with: Family Family History: None, CAD, COPD, CVA, Hyperlipidemia, Hypertension Neurological Medical History: Reports: Hx Seizures Psychiatric Medical History: Reports: Hx Anxiety, Hx Attention Deficit Hyperactivity Disorder, Hx Depression Past Surgical History: Reports: Hx Dilation and Curettage - numerous, Hx Oral Surgery - Immunizations Immunizations up to date: Yes Hx Diphtheria, Pertussis, Tetanus Vaccination: Yes Review of Systems - Review of Systems Constitutional: No symptoms reported EENT: No symptoms reported Cardiovascular: No symptoms reported Respiratory: No symptoms reported Gastrointestinal: See HPI, Abdominal pain Genitourinary: No symptoms reported Female Genitourinary: See HPI, Last menstrual period - 02/25, , Vaginal bleeding Musculoskeletal: No symptoms reported Skin: No symptoms reported Hematologic/Lymphatic: No symptoms reported Neurological/Psychological: No symptoms reported -: Yes All other systems reviewed and negative Physical Exam - Vital signs Vitals: Temp Pulse Resp BP Pulse Ox 97.8 F 110 H 22 H 103/73 97 05/24/19 06:52 05/24/19 06:52 05/24/19 06:52 05/24/19 06:52 05/24/19 06:52 - Notes Notes: Physical Exam: General: Alert, appears quite uncomfortable. Patient's clothing and bed sheets have dried blood on them. HEENT: Normocephalic. Atraumatic. PERRL. Extraocular movements intact. Oropharynx clear. Neck: Supple. Non-tender. Respiratory: No respiratory distress. Clear and equal breath sounds bilaterally. Cardiovascular: Regular rate and rhythm. Abdominal: Pelvic tenderness with palpation. No distension. Normal Bowel Sounds. Back: No gross abnormalities. Extremities: Moves all four extremities. Upper extremities: Normal inspection. Normal ROM. Lower extremities: Normal inspection. No edema. Normal ROM. Neurological: Normal cognition. AAOx4. Normal speech. Psychological: Normal affect. Normal Mood. Skin: Warm. Dry. Normal color. Course - Vital Signs Vital signs: Temp Pulse Resp BP Pulse Ox 97.8 F 110 H 13 111/90 H 95 05/24/19 06:52 05/24/19 06:52 05/24/19 08:15 05/24/19 08:15 05/24/19 08:15 - Laboratory Result Diagrams: 05/24/19 07:11 05/24/19 07:11 Laboratory results interpreted by me: 05/24/19 05/24/19 07:11 07:11 RDW 14.5 H Sodium 133.4 L Creatinine 0.49 L Glucose 138 H Beta HCG, Quant 990.90 H - Diagnostic Test Radiology reviewed: Image reviewed, Reports reviewed - Ultrasound shows completed miscarriage. Discharge - Discharge Clinical Impression: Complete miscarriage Condition: Stable Disposition: HOME, SELF-CARE Additional Instructions: Miscarriage You have had a miscarriage (medically called a "spontaneous "). The miscarriage occurred because the fetus did not develop normally. There is nothing you did to cause it, and nothing you could have done to prevent it. About one in four ends in miscarriage. You should rest in bed for two or three days. As there is some risk of infection of the uterus, you should not have intercourse for one week (or until okayed by your physician). You might not have a period for six to eight weeks. You should not become again for at least three months -- the uterus requires time to get back to normal. Call the doctor or return for re-examination if there is heavy or persis tent vaginal bleeding, fever, foul discharge, continued cramping pains, or abdominal pain. Take ibuprofen or Aleve for pelvic cramping. Follow[facility] 1 week for recheck. RETURN TO THE EMERGENCY ROOM IF ANY NEW OR WORSENING SYMPTOMS. Referrals: SID ELLIS MD [Primary Care Provider] - Follow up as needed [facility] [Provider Group] - Follow up in 1 week I personally performed the services described in the documentation, reviewed and edited the documentation which was dictated to the scribe in my presence, and it accurately records my words and actions.
[2019-05-24 10:08] VITALS: BP 101/72
== END 2019-05-24 10:20 | disposition home or self-care (01) ==
LOC: ER 06:44
DX: O03.9 Complete or unspecified spontaneous abortion without complication (principal); F17.200 Nicotine dependence, unspecified, uncomplicated
CPT/HCPCS: 99284; 96374; 36415; 84702; 85025; 80053; 88305 ×2; 76817; J1885

== ENCOUNTER 2019-07-10 13:15 | Emergency (ER) | payer MEDICAID ==
[2019-07-10] MEDS: NORMAL SALINE 1000 ML 1,000 ML IV PRN ×2 (14:30→16:30)
[2019-07-10] MEDS ORDERED: NORMAL SALINE 1000 ML 1,000 ML IV ONE (14:33)
--- NOTE | 2019-07-10 14:35 | ER Document Report ---
ED General - General Chief Complaint: Possible Overdose Stated Complaint: POSSIBLE OVERDOSE Time Seen by Provider: 07/10/19 13:37 Primary Care Provider: SID ELLIS MD [Primary Care Provider] - Follow up as needed Notes: 33 year old female presents to the ED via EMS complaining of left sided chest and upper abdominal pain as well as allover muscle aches that she characterizes as "I cannot move." When questioned further as to whether or not she really cannot move she states that she is able to walk it just hurts and that makes her not want to move. Patient attributes this to helping somebody to move yesterday and moving lots of things around her house yesterday. Patient acknowledges that she is sleepy, states that she has taken ibuprofen, for Xanax and Excedrin Migraine. States that normally she would take 1 Xanax every 6 hours however she called her doctor whose name she cannot recall and asked permission to take all 4 at once and was given permission to take them because she was having so much pain. Admits history of heroin use, last used heroin approximately a week ago. TRAVEL OUTSIDE OF THE [place] IN LAST 30 DAYS: No - Related Data Allergies/Adverse Reactions: No Known Allergies Allergy (Verified 12/19/18 15:02) Past Medical History - General Information source: Patient, Emergency Med Personnel - Social History Smoking Status: Unknown if Ever Smoked - Denies currently smoking. Frequency of alcohol use: None Drug Abuse: Heroin Family History: CAD, COPD, CVA, Hyperlipidemia, Hypertension Neurological Medical History: Reports: Hx Seizures Renal/ Medical History: Denies: Hx Peritoneal Dialysis Psychiatric Medical History: Reports: Hx Anxiety, Hx Attention Deficit Hyperactivity Disorder, Hx Depression Past Surgical History: Reports: Hx Dilation and Curettage - numerous, Hx Oral Surgery, Other - D&C - Immunizations Immunizations up to date: Yes Hx Diphtheria, Pertussis, Tetanus Vaccination: Yes Review of Systems - Review of Systems Constitutional: Weakness, Other - Generalized achiness. EENT: No symptoms reported Cardiovascular: See HPI, Chest pain Respiratory: See HPI, Hurts to breathe. denies: Cough, Short of breath Gastrointestinal: See HPI, Abdominal pain - Left upper quadrant abdominal pain. Genitourinary: No symptoms reported Female Genitourinary: No symptoms reported Musculoskeletal: See HPI, Muscle pain Neurological/Psychological: See HPI - Sleepiness. -: Yes All other systems reviewed and negative Physical Exam - Vital signs Vitals: Resp 23 H 07/10/19 13:22 - Notes Notes: GENERAL: Sleeping, awakens to verbal stimuli, some difficulty staying awake for conversation. Does not appear to be in pain. HEAD: Normocephalic, atraumatic EYES: Pupils equal, round and reactive to light, extraocular movements intact. ENT: Oral mucosa moist, tongue midline. NECK: Full range of motion, supple, trachea midline. LUNGS: Clear to auscultation bilaterally, no wheezes, rales or rhonchi, no respiratory distress. HEART: Regular rate and rhythm, no murmurs, gallops, rubs. ABDOMEN: Soft, epigastric tenderness to palpation, nondistended, bowel sounds present in all 4 quadrants. EXTREMITIES: Moves all 4 extremities spontaneously, no edema, radial and dorsalis pedis pulses 2/4 bilaterally. No cyanosis. NEUROLOGICAL: Somnolent, oriented to person and place, able to tell me how she got here, patient mumbles but speech is not slurred, no difficulty with word finding, moves all 4 extremities spontaneously, localizes to pain but will hold still for us to start IVs. No facial droop. PSYCH: Somnolent but also somewhat irritable. SKIN: Warm, Dry, fingers are mildly cyanotic, some bruising noted to the right forearm. No abscesses noted. No specific track harris seen. Course - Re-evaluation Re-evalutation: 07/10/19 19:16 .On arrival patient was somnolent, had to wear 10 to 15 L on a facemask via nonrebreather. Patient was initially placed on a 4-hour hold by EMS due to possibility of overdose. Patient denies overdose but stated that she did takefour Xanax all at once. Patient was tested for Covid-19 and it was negative. CBC shows leukocytosis and mild anemia, venous blood gas shows respiratory acidosis with pH of 7.24, PCO2 of 64.4, chemistries show mild hyponatremia with sodium 132.2, potassium slightly elevated at 5.2, BUN and creatinine elevated at 29 and 1.29, lactic acid is normal, calcium slightly low at 8.2, AST and ALT are both elevated, CK is markedly elevated at 17,569, CK-MB is 53.5, troponin is positive at 0.228. EKG does not have any ischemic changes, looks quite similar to her EKG from 2019. Lipase is normal. Patient is not having any chest pain currently, she was given Lovenox due to the elevated troponin. I did perform a CT angiogram of the chest to see if there is may be a pulmonary embolism causing heart strain an d a troponin leak, it did not reveal a pulmonary embolism but it did reveal left upper lobe and right lower lobe pneumonia which is treated with azithromycin and Rocephin. test is negative. Urinalysis shows myoglobinuria, drug screen shows opiates and benzodiazepines. Flu swabs are negative. Discussed case with our hospitalist Dr. De Santiago who feels given her young age, lack of risk factors for cardiac disease and positive troponin patient will be better served at another facility that has a full range of specialties including interventional cardiology if necessary. I did discuss the patient with behavioral health, they are unable to assess at this time whether or not the patient was or is truly a danger to herself as she is too somnolent to fully answer these questions. Patient did initially have her 24-hour hold rescinded due to complications that this 24-hour hold can s ometimes cause with transport and the fact that she is unable to actually get up and hurt herself at this point behavioral health does not feel she is a danger to herself due to inability to physically hurt herself. After discussing the case with Dr. Brennan from [facility] and their transfer center they stated that they would be able to transport the patient even if she was on involuntary commitment paperwork or petition for 24-hour hold. Out of abundance of caution even though the patient is not physically capable of harming herself right now she cannot even get out of the bed patient will be but he is back on 24-hour hold so that she is not able to leave the [facility] before she has had a full assessment by behavioral health team when she is more awake. 07/10/19 20:34 Patient still quite somnolent, transport at bedside. Patient is stable for transport. Answers all questions from transport team. - Vital Signs Vital signs: Temp Pulse Resp BP Pulse Ox 100.5 F H 17 126/80 H 93 07/10/19 19:01 07/10/19 19:01 07/10/19 19:00 07/10/19 19:01 - Laboratory Result Diagrams: 07/10/19 14:10 07/10/19 14:10 Laboratory results interpreted by me: 07/10/19 07/10/19 07/10/19 14:10 14:10 14:10 WBC 14.1 H Hgb 11.5 L Hct 35.4 L MCH 26.7 L RDW 16.2 H Seg Neuts % (Manual) 95 H Lymphocytes % (Manual) 2 L Abs Neuts (Manual) 13.4 H Abs Lymphs (Manual) 0.3 L VBG pH VBG pCO2 Sodium 132.2 L Potassium 5.2 H BUN 29 H Creatinine 1.29 H Est GFR ( Amer) 58 L Est GFR (MDRD) Non-Af 48 L Calcium 8.2 L AST 472 H ALT 197 H Creatine Kinase 74521 H CK-MB (CK-2) 53.50 H Urine Protein Urine Blood Salicylates < 1.0 L Acetaminophen < 10 L 07/10/19 07/10/19 14:49 15:22 WBC Hgb Hct MCH RDW Seg Neuts % (Manual) Lymphocytes % (Manual) Abs Neuts (Manual) Abs Lymphs (Manual) VBG pH 7.24 L VBG pCO2 64.4 H Sodium Potassium BUN Creatinine Est GFR ( Amer) Est GFR (MDRD) Non-Af Calcium AST ALT Creatine Kinase CK-MB (CK-2) Urine Protein 30 H Urine Blood LARGE H Salicylates Acetaminophen - EKG Interpretation by Me Additional EKG results interpreted by me: 07/10/19 14:43 EKG shows sinus tachycardia at a rate of 105, T wave inversions in lead III, no ST segment elevations or depressions, normal axis, normal intervals per my interpretation. Critical Care Note - Critical Care Note Total time excluding time spent on procedures (mins): 65 Discharge - Discharge Clinical Impression: NSTEMI (non-ST elevated myocardial infarction), possible overdose Bilateral pneumonia Qualifiers: Pneumonia type: due to unspecified organism Lung location: unspecified part of lung Qualified Code(s): J18.9 - Pneumonia, unspecified organism Rhabdomyolysis Qualifiers: Rhabdomyolysis type: non-traumatic Qualified Code(s): M62.82 - Rhabdomyolysis Condition: Serious Disposition: [facility] Referrals: SID ELLIS MD [Primary Care Provider] - Follow up as needed
--- NOTE | 2019-07-10 14:39 | PSYCHOLOGICAL NOTE ---
Psych Note - Psych Note Date seen by psych provider: 07/10/19 Time seen by psych provider: 14:22 Psych Note: Patient presented to [facility] ED with concern of intentional overdose. Patient tool 2mg Xanax tablets; about 70 tablets are missing. Patient has a significant histo ry of both substance abuse and mental health. She reportedly has one previous attempt about 2 years ago per her mother. Patient is unable to currently engage with evaluation. 24 hour petition for evaluation has been signed and placed in patient's chart.
[2019-07-10 14:57] LABS: HEMATOCRIT 35.4 % (36.0-47.0); HEMOGLOBIN 11.5 g/dL (12.0-15.5); MEAN CORPUSCULAR HEMOGLOBIN 26.7 pg (27.0-33.4); MEAN CORPUSCULAR HGB CONC 32.6 g/dL (32.0-36.0); MEAN CORPUSCULAR VOLUME 82 fl (80-97); PLATELET COUNT 278 10^3/uL (150-450); RED BLOOD COUNT 4.33 10^6/uL (3.72-5.28); RED CELL DISTRIBUTION WIDTH 16.2 % (11.5-14.0); WHITE BLOOD COUNT 14.1 10^3/uL (4.0-10.5)
[2019-07-10 15:07] LABS: ALKALINE PHOSPHATASE 111 U/L (38-126); ANION GAP 7 (5-19); ASPARTATE AMINO TRANSFERASE 472 U/L (14-36); BILIRUBIN,TOTAL 0.2 mg/dL (0.2-1.3); BLOOD UREA NITROGEN 29 mg/dL (7-20); CALCIUM 8.2 mg/dL (8.4-10.2); CARBON DIOXIDE 27 mmol/L (22-30); CHLORIDE 98 mmol/L (98-107); GLUCOSE 109 mg/dL (75-110); POTASSIUM 5.2 mmol/L (3.6-5.0); TOTAL PROTEIN 6.8 g/dL (6.3-8.2)
[2019-07-10 15:08] LABS: ACETAMINOPHEN < 10 ug/mL (10-30); ALCOHOL < 10 mg/dL (NONE DETECTED); SALICYLATE < 1.0 mg/dL (2.0-20.0)
[2019-07-10 15:11] LABS: VENOUS BLOOD BASE EXCESS -1.8 mmol/L; VENOUS BLOOD HCO3 26.7 mmol/L (20-32); VENOUS BLOOD PCO2 64.4 mmHg (35-63); VENOUS BLOOD PH 7.24 (7.30-7.42)
[2019-07-10 15:15] LABS: CREATINE KINASE MB 53.5 ng/mL (<4.55)
[2019-07-10 15:19] LABS: TROPONIN I 0.228 ng/mL
[2019-07-10] MEDS ORDERED: ENOXAPARIN SODIUM INJ 80 MG/0.8 ML DISP.SYRIN SUBCUT ONE (15:21)
[2019-07-10 15:26] LABS: ABSOLUTE LYMPHOCYTES# (MANUAL) 0.3 10^3/uL (0.5-4.7); ABSOLUTE MONOCYTES # (MANUAL) 0.4 10^3/uL (0.1-1.4); BASOPHILS % (MANUAL) 0 % (0-2); EOSINOPHILS % (MANUAL) 0 % (0-6); LYMPHOCYTES % (MANUAL) 2 % (13-45); MONOCYTES % (MANUAL) 3 % (3-13); SEGMENTED NEUTROPHILS % (MAN) 95 % (42-78); TOTAL CELLS COUNTED 100
[2019-07-10 15:27] LABS: ANISOCYTOSIS 1+; PLATELET CLUMPS PRESENT; PLATELET COMMENT ADEQUATE; POIKILOCYTOSIS SLIGHT; TEAR DROP CELLS SLIGHT
[2019-07-10 15:39] LABS: CREATINE KINASE 17569 U/L (30-135)
[2019-07-10 15:49] LABS: APPEARANCE,URINE CLEAR; BILIRUBIN,URINE NEGATIVE (NEGATIVE); COLOR,URINE YELLOW; GLUCOSE, URINE NEGATIVE (NEGATIVE); KETONES,URINE NEGATIVE (NEGATIVE); LEUKOCYTE ESTERASE,URINE NEGATIVE (NEGATIVE); NITRITE,URINE NEGATIVE (NEGATIVE); PROTEIN,URINE 30 mg/dL (NEGATIVE); URINE SPECIFIC GRAVITY 1.015; UROBILINOGEN,URINE NEGATIVE mg/dL (<2.0)
[2019-07-10 15:55] LABS: A TYPE INFLUENZA AG NEGATIVE (NEGATIVE); B INFLUENZA AG NEGATIVE (NEGATIVE)
[2019-07-10 16:06] LABS: URINE AMPHETAMINES SCREEN NEGATIVE; URINE BARBITURATES SCREEN NEGATIVE; URINE COCAINE SCREEN NEGATIVE; URINE MARIJUANA (THC) SCREEN NEGATIVE; URINE METHADONE SCREEN NEGATIVE; URINE PHENCYCLIDINE SCREEN NEGATIVE
[2019-07-10 16:08] LABS: URINE BENZODIAZEPINES SCREEN UNCONFIRMED POSITIVE
[2019-07-10] MEDS ORDERED: ACETAMINOPHEN 325 MG TABLET PO ONE (17:20)
--- NOTE | 2019-07-10 17:36 | RADIOLOGY REPORT (SQ) ---
EXAM DESCRIPTION: CTA CHEST IMAGES COMPLETED DATE/TIME: 07/10/2019 4:09 pm REASON FOR STUDY: hypoxia, r/o PE, also maybe COVID COMPARISON: None. TECHNIQUE: CT scan of the chest performed using helical scanning technique with dynamic intravenous contrast injection. Images reviewed with lung, soft tissue and bone windows. Reconstructed coronal and sagittal MPR images reviewed. Additional 3 dimensional post-processing performed to develop Maximal Intensity Projection images ([place] P). All images stored on PACS. All CT scanners at this facility use dose modulation, iterative reconstruction, and/or weight based d osing when appropriate to reduce radiation dose to as low as reasonably achievable (ALARA). [facility]: Dose Right [facility]: CareDose [facility]: Dose Right [facility]: Teradose 4D [facility]: DockPHP CONTRAST TYPE AND DOSE: contrast/concentration: Isovue mg/ml; Total Contrast Delivered: 62.0 ml; To jayson Saline Delivered: 80.0 ml Contrast bolus optimized for the pulmonary arteries. Not diagnostic for the aorta. RENAL FUNCTION: Creatinine 1.29 today. RADIATION DOSE: CT Rad equipment meets quality standard of care and radiation dose reduction techniq ues were employed. CTDIvol: 16.1 - 26.4 mGy. DLP: 602 mGy-cm. . LIMITATIONS: None. FINDINGS: LUNGS AND PLEURA: The trachea is collapsed due to respiratory motion and expiratory phase. There is dense consolidation in the left upper lobe and atelectasis/ consolidation in the left lowe r lobe. Patchy atelectasis/ consolidation at the right lung base. No pleural effusion or pneumothor ax. AORTA AND GREAT VESSELS: No aneurysm. Contrast bolus not optimized for the aorta. HEART: No pericardial effusion. No significant coronary artery calcifications. PULMONARY ARTERIES: No emboli visualized in the main pulmonary arteries or the segmental branches. HILAR AND MEDIASTINAL STRUCTURES: No identified masses or abnormal nodes. HARDWARE: None in the chest. UPPER ABDOMEN: Severe hepatic steatosis. THYROID AND OTHER SOFT TISSUES: No masses. No adenopathy. BONES: No acute or significant finding. 3D MIPS: Confirm above findings. OTHER: No other significant finding. IMPRESSION: 1. No pulmonary embolism. 2. Consolidation in left upper and lower lobe probably a combination of infectious process and atelec tasis. Imaging features can be seen with covid-19 pneumonia, though are nonspecific and can occur wi th a variety of infectious and noninfectious processes. COMMENT: Quality ID # [id number]: Final reports with documentation of one or more dose reduction techniques (e.g., Automated exposure control, adjustment of the mA and/or kV according to patient size, use of iterative reconstruction technique) TECHNICAL DOCUMENTATION: JOB ID: [id number] 2010 [employer]- All Rights Reserved Reading location - IP/workstation name: [email or web address]
--- NOTE | 2019-07-10 17:45 | PSYCHOLOGICAL NOTE ---
Psych Note - Psych Note Date seen by psych provider: 07/10/19 Time seen by psych provider: 17:35 Psych Note: Patient needs to be medically transferred. Patient was initially placed on 24 hour petition for evaluation for concerns for the patient's overdose. Patient is currently unable to physically get up and engage in behaviours that could harm herself. Petition has been rescind (signed and placed in patient's chart) to enable transport for medical. Patient can be evaluated again at the receiving hospital to determine if the patient's overdose was intention or accidental.
[2019-07-10] MEDS ORDERED: AZITHROMYCIN INJ 500 MG VIAL IV ONE (17:55)
[2019-07-10] MEDS ORDERED: CEFTRIAXONE 1 GM/D5W RTU 1 GM/50 ML RTUPB IV ONE (18:30)
[2019-07-10 19:15] VITALS: BP 126/80
--- NOTE | 2019-07-11 07:11 | EKG REPORT ---
SEVERITY:- BORDERLINE ECG - SINUS TACHYCARDIA BORDERLINE T ABNORMALITIES, INFERIOR LEADS : Confirmed by: Alistair Moulton MD 11-Jul-2019 07:09:54
== END 2019-07-10 20:32 | disposition short-term general hospital (02) ==
LOC: ER 13:15
DX: I21.4 Non-ST elevation (NSTEMI) myocardial infarction (principal); J18.9 Pneumonia, unspecified organism; M62.82 Rhabdomyolysis; R07.1 Chest pain on breathing; R10.10 Upper abdominal pain, unspecified; F11.10 Opioid abuse, uncomplicated; E87.2 Acidosis; E87.1 Hypo-osmolality and hyponatremia; R74.0 Nonspecific elevation of levels of transaminase and lactic acid dehydrogenase [LDH]; R82.1 Myoglobinuria; R00.0 Tachycardia, unspecified; R10.816 Epigastric abdominal tenderness; R40.0 Somnolence; D64.9 Anemia, unspecified; F41.9 Anxiety disorder, unspecified; Z79.899 Other long term (current) drug therapy; Z03.818 Encounter for observation for suspected exposure to other biological agents ruled out; Z82.49 Family history of ischemic heart disease and other diseases of the circulatory system
CPT/HCPCS: 93005; 99291; 96372; 96361; 51702; 96374; 96375; 36415; 87040; 82553; 80307 ×4; 82550; 83605; 83690; 84703; 85025; 87635; 80053; 81001; 84484; 82803; 87804; 71275; 93010; J3490; J7030; J0456; J1650; J0696

== ENCOUNTER 2019-11-19 21:11 | Emergency (ER) | payer MEDICAID ==
--- NOTE | 2019-11-19 21:22 | ER Document Report ---
ED Medical Screen (RME) - General Chief Complaint: Vaginal Discharge Stated Complaint: DISCHARGE Time Seen by Provider: 11/19/19 21:20 Primary Care Provider: SID ELLIS MD [Primary Care Provider] - Follow up as needed Notes: Patient presents complaining of vaginal discharge that started this evening. Patient is presently 11 weeks . Patient denies any urinary symptoms. Patient denies any pelvic pain. She reports discharge is a dark brown. I have greeted and performed a rapid initial assessment of this patient. A comprehensive ED assessment and evaluation of the patient, analysis of test results and completion of the medical decision making process will be conducted by additional ED providers. TRAVEL OUTSIDE OF THE [place] IN LAST 30 DAYS: No - Related Data Allergies/Adverse Reactions: No Known Allergies Allergy (Verified 11/19/19 21:21) Past Medical History Neurological Medical History: Reports: Hx Seizures Renal/ Medical History: Denies: Hx Peritoneal Dialysis Psychiatric Medical History: Reports: Hx Anxiety, Hx Attention Deficit Hyperactivity Disorder, Hx Depression Past Surgical History: Reports: Hx Dilation and Curettage - numerous, Hx Oral Surgery, Other - D&C - Immunizations Immunizations up to date: Yes Hx Diphtheria, Pertussis, Tetanus Vaccination: Yes Physical Exam - General General appearance: Appears well, Alert In distress: None Doctor's Discharge - Discharge Referrals: SID ELLIS MD [Primary Care Provider] - Follow up as needed
[2019-11-19 21:27] VITALS: BP 130/87
[2019-11-19 21:50] LABS: ABSOLUTE EOSINOPHILS # (AUTO) 0.2 10^3/uL (0.0-0.6); ABSOLUTE LYMPHOCYTES (AUTO) 2.5 10^3/uL (0.5-4.7); ABSOLUTE MONOCYTES (AUTO) 0.6 10^3/uL (0.1-1.4); ABSOLUTE NEUT (AUTO) 5.8 10^3/uL (1.7-8.2); BASOPHILS % (AUTO) 0.2 % (0-2); HEMATOCRIT 41.5 % (36.0-47.0); HEMOGLOBIN 14.1 g/dL (12.0-15.5); LYMPHOCYTES % (AUTO) 27.5 % (13-45); MEAN CORPUSCULAR HEMOGLOBIN 28.8 pg (27.0-33.4); MEAN CORPUSCULAR HGB CONC 34.1 g/dL (32.0-36.0); MEAN CORPUSCULAR VOLUME 84 fl (80-97); MONOCYTES % (AUTO) 6.8 % (3-13); PLATELET COUNT 228 10^3/uL (150-450); RED BLOOD COUNT 4.91 10^6/uL (3.72-5.28); RED CELL DISTRIBUTION WIDTH 15.7 % (11.5-14.0); SEGMENTED NEUTROPHILS % (AUTO) 63.5 % (42-78); TOTAL CELLS COUNTED % (AUTO) 100 %; WHITE BLOOD COUNT 9.1 10^3/uL (4.0-10.5)
[2019-11-19 22:02] LABS: AMORPHOUS SEDIMENT,URINE 1+ /HPF; APPEARANCE,URINE CLOUDY; BILIRUBIN,URINE NEGATIVE (NEGATIVE); COLOR,URINE YELLOW; GLUCOSE, URINE NEGATIVE (NEGATIVE); KETONES,URINE NEGATIVE (NEGATIVE); LEUKOCYTE ESTERASE,URINE TRACE (NEGATIVE); NITRITE,URINE NEGATIVE (NEGATIVE); PROTEIN,URINE NEGATIVE (NEGATIVE); UROBILINOGEN,URINE NEGATIVE mg/dL (<2.0)
--- NOTE | 2019-11-19 23:20 | RADIOLOGY REPORT (SQ) ---
Ultrasound OB transvaginal on 11/19/2019 at 10:23 PM CLINICAL INDICATION: , vaginal discharge, bleeding COMPARISON: None this FINDINGS: Multiple sonographic images are obtained throughout the pelvis by transvaginal approach, both transverse and sagittal images are obtained. Early intrauterine is identified with a gestational sac, yolk sac and fetus. Estimated gestational age by crown-rump length measurement is on approximately 11 week one day gestation. Positive cardiac activity is noted with a heart rate of 173 bpm. Adjacent to the gestational sac is a small subchorionic hemorrhage measuring approximately 2.5 x 1.6 x 2.5 cm. Gestation is too early for placental evaluation. Cervical length measures approximately 3.7 cm and the cervix is closed. Uterus measures approximately 13.7 x 8.7 x 10.5 cm. The right ovary measures approximately 3.1 x 1.9 x 2.7 cm. Flow is demonstrated in the right ovary. Left ovary is not visualized. No adnexal abnormality is noted. Nuchal translucency does appear to be mildly thickened measuring 4.8 mm, this can be followed up on future follow-up imaging. IMPRESSION: Single living approximately 11 mm one day intrauterine with small adjacent subchorionic hemorrhage.
[2019-11-19 23:23] LABS: CHLAM PCR NOT DETECTED (NOT DETECT)
--- NOTE | 2019-11-20 01:52 | ER Document Report ---
ED GI/ - General Chief Complaint: Vaginal Bleeding Stated Complaint: DISCHARGE Time Seen by Provider: 11/19/19 21:20 Primary Care Provider: [facility] [Provider Group] - Follow up in 3-5 days (Call for follow-up appointment in 1 to 2 days.) SID ELLIS MD [Primary Care Provider] - Follow up as needed Mode of Arrival: Ambulatory Information source: Patient Notes: 34-year-old female 5 para 2, who states that she is approximately 11-wee ks , presents to the emergency room stating that around 9 PM tonight she went to use the restroom and after she wiped she noticed some brown-colored discharge. Denies any bleeding, denies any pain. Patient got concerned that she has had 2 previous miscarriages. States her OB care is up-to-date. Is followed by [facility] has had a normal ultrasound unsure when that was. She denies any fevers, no nausea, no vomiting, no abdominal pain. Denies any other discharge since arrival to the emergency room. Currently asymptomatic. TRAVEL OUTSIDE OF THE [place] IN LAST 30 DAYS: No - Related Data Allergies/Adverse Reactions: No Known Allergies Allergy (Verified 11/19/19 21:21) Past Medical History - General Information source: Patient - Social History Smoking Status: Current Every Day Smoker Frequency of alcohol use: None Drug Abuse: None Family History: CAD, COPD, CVA, Hyperlipidemia, Hypertension Patient has homicidal ideation: No Neurological Medical History: Reports: Hx Seizures Renal/ Medical History: Denies: Hx Peritoneal Dialysis Psychiatric Medical History: Reports: Hx Anxiety, Hx Attention Deficit Hyperactivity Disorder, Hx Depression Past Surgical History: Reports: Hx Dilation and Curettage - numerous, Hx Oral Surgery, Other - D&C - Immunizations Immunizations up to date: Yes Hx Diphtheria, Pertussis, Tetanus Vaccination: Yes Review of Systems - Review of Systems Constitutional: No symptoms reported EENT: No symptoms reported Cardiovascular: No symptoms reported Respiratory: No symptoms reported Gastrointestinal: No symptoms reported Female Genitourinary: , Vaginal discharge Skin: No symptoms reported Neurological/Psychological: No symptoms reported -: Yes All other systems reviewed and negative Physical Exam - Vital signs Vitals: Temp Pulse Resp BP Pulse Ox 98.4 F 98 19 130/87 H 100 11/19/19 21:25 11/19/19 21:25 11/19/19 21:25 11/19/19 21:25 11/19/19 21:25 - Notes Notes: VITAL SIGNS: Within normal limits. GENERAL: Mild acute distress, non-toxic appearance. HEAD: Normal with no signs of head trauma. EYES: PERRLA, EOMI, conjunctiva normal, no discharge. EARS: Hearing grossly intact. NOSE: Normal. THROAT: Oropharynx is normal. NECK: Normal range of motion, no tenderness, supple, no lymphadenopathy, No adenopathy, no JVD. CHEST: Clear breath sounds bilaterally. No wheezes, rales, or rhonchi. CARDIAC: Regular rate and rhythm. S1 and S2, without murmurs, gallops, or rubs. VASCULAR: No Edema. Peripheral pulses normal and equal in all extremities. ABDOMEN: Normal and soft with no tenderness, no masses or pulsatile masses. No organomegaly. Positive bowel sounds x4. No CVA tenderness noted bilaterally. GASTROINTESTINAL: Bowel sounds normal GENITOURINARY: Normal, No tenderness LYMPATHTIC: No lymphadenopathy noted. MUSCULOSKELETAL: Good range of motion of all major joints. Extremities without clubbing, cyanosis or edema. NEUROLOGICAL: Alert and oriented x 3. No focal sensory or strength deficits. Speech normal. Follows commands appropriately. PSYCHIATRIC: Normal Affect, judgement and mood. SKIN: Normal appearance with no rashes or lesions. Course - Re-evaluation Re-evalutation: 11/20/19 01:55 Patient is resting comfortably she is pain-free. She has not had any additional vaginal discharge or bleeding since arrival to the emergency room. All lab and ultrasound results were reviewed with the patient. Discussed to the findings of a subchorionic hemorrhage on her ultrasound. She is current with her OB care through [facility]. Counseled on importance of following up with her [facility] in 2 to 3 days. Patient was given strict return to the emergency room guidelines. Return for any new or worsening symptoms. All questions were answered. Patient verbalized understanding and agrees with plan of care. 11/20/19 03:04 - Vital Signs Vital signs: Temp Pulse Resp BP Pulse Ox 98.4 F 98 19 130/87 H 100 11/19/19 21:25 11/19/19 21:25 11/19/19 21:25 11/19/19 21:25 09/12/20 21:25 - Laboratory Result Diagrams: 11/19/19 21:36 Laboratory results interpreted by me: 11/19/19 11/19/19 11/19/19 21:36 21:36 21:36 RDW 15.7 H Beta HCG, Quant [id number] H Ur Leukocyte Esterase TRACE H - Diagnostic Test Radiology reviewed: Reports reviewed Discharge - Discharge Clinical Impression: Vaginal discharge during Qualifiers: Trimester: first trimester Qualified Code(s): O26.891 - Other specified related conditions, first trimester Subchorionic hemorrhage in first trimester Qualifiers: Fetus number: single or unspecified fetus Qualified Code(s): O41.8X10 - Other specified disorders of amniotic fluid and membranes, first trimester, not applicable or unspecified Condition: Stable Disposition: HOME, SELF-CARE Instructions: ([facility]) Additional Instructions: You have a small area of subchorionic hemorrhage noted on your ultrasound. It is important that you follow-up outpatient with your [facility] for follow-up in the next 1 to 2 days. Return to the emergency room for any new or worsening symptoms. Referrals: SID ELLIS MD [Primary Care Provider] - Follow up as needed [facility] [Provider Group] - Follow up in 3-5 days (Call for follow-up appointment in 1 to 2 days.)
== END 2019-11-20 02:50 | disposition home or self-care (01) ==
LOC: ER 21:11
DX: O26.891 Other specified pregnancy related conditions, first trimester (principal); O41.8X10 Other specified disorders of amniotic fluid and membranes, first trimester, not applicable or unspecified; O99.331 Smoking (tobacco) complicating pregnancy, first trimester; Z3A.11 11 weeks gestation of pregnancy
CPT/HCPCS: 36415; 76817; 81001; 84702; 85025; 87491; 87591; 99284

== ENCOUNTER 2020-03-22 01:55 | Inpatient (IN) | payer MEDICAID ==
[2020-03-22] MEDS ORDERED: CITRIC ACID/SODIUM CITRATE ORAL SOLN 15 ML UDCUP ONE (02:26)
[2020-03-22 02:27] LABS: ABSOLUTE EOSINOPHILS # (AUTO) 0.1 10^3/uL (0.0-0.6); ABSOLUTE LYMPHOCYTES (AUTO) 2.4 10^3/uL (0.5-4.7); ABSOLUTE NEUT (AUTO) 8.2 10^3/uL (1.7-8.2); BASOPHILS % (AUTO) 0.4 % (0-2); EOSINOPHILS % (AUTO) 1.1 % (0-6); HEMATOCRIT 33.2 % (36.0-47.0); HEMOGLOBIN 11.9 g/dL (12.0-15.5); LYMPHOCYTES % (AUTO) 20.5 % (13-45); MEAN CORPUSCULAR HEMOGLOBIN 31.1 pg (27.0-33.4); MEAN CORPUSCULAR HGB CONC 35.7 g/dL (32.0-36.0); MEAN CORPUSCULAR VOLUME 87 fl (80-97); MONOCYTES % (AUTO) 8.4 % (3-13); PLATELET COUNT 251 10^3/uL (150-450); RED BLOOD COUNT 3.81 10^6/uL (3.72-5.28); RED CELL DISTRIBUTION WIDTH 13.7 % (11.5-14.0); SEGMENTED NEUTROPHILS % (AUTO) 69.6 % (42-78); TOTAL CELLS COUNTED % (AUTO) 100 %; WHITE BLOOD COUNT 11.8 10^3/uL (4.0-10.5)
[2020-03-22] MEDS ORDERED: KETOROLAC TROMETHAMINE INJ/PF 30 MG/1 ML SDV ONE (02:27)
[2020-03-22] MEDS ORDERED: OXYTOCIN 10 UNIT/ML VIAL ONE ×4 (02:27→07:25)
[2020-03-22] MEDS ORDERED: FENTANYL CITRATE INJ/PF 100 MCG/2 ML AMPUL ONE ×3 (02:27→03:43)
[2020-03-22] MEDS ORDERED: CEFAZOLIN 2 GM/D5W RTU 2 GM/50 ML RTUPB IV ONE (02:27)
[2020-03-22] MEDS ORDERED: MORPHINE SULFATE 10 MG/ML INJ ONE ×2 (02:28→04:04)
[2020-03-22] MEDS ORDERED: ACETAMINOPHEN 1,000 MG/100 ML RTUPB IV ONE (02:28)
[2020-03-22] MEDS ORDERED: EPHEDRINE SULFATE INJ 50 MG/1 ML AMPULE ONE (02:28)
[2020-03-22] MEDS ORDERED: MIDAZOLAM 2 MG/2 ML INJ ONE ×2 (02:28→02:58)
[2020-03-22] MEDS ORDERED: ONDANSETRON HCL INJ/PF 4 MG/2 ML SDV ONE (02:28)
[2020-03-22] MEDS ORDERED: DEXAMETHASONE SOD PHOSPHATE INJ 4 MG/1 ML VIAL ONE (02:28)
[2020-03-22] MEDS ORDERED: METHYLERGONOVINE MALEATE INJ/PF 0.2 MG/1 ML AMPULE ONE ×2 (02:30→04:50)
[2020-03-22] MEDS ORDERED: MISOPROSTOL 0.2 MG TABLET ONE (02:30)
[2020-03-22] MEDS ORDERED: NORMAL SALINE 250 ML IV PRN ×6 (02:40→05:19)
[2020-03-22 02:56] LABS: INTERNATIONAL RATION (INR) 0.93; PROTHROMBIN TIME 12.7 SEC (11.4-15.4)
[2020-03-22 02:57] LABS: FIBRINOGEN 381 mg/dL (209-497); PARTIAL THROMBOPLASTIN TIME 27.9 SEC (23.5-35.8)
[2020-03-22] MEDS ORDERED: DIPHENHYDRAMINE HCL 50 MG/ML VIAL IV PRN (03:27)
[2020-03-22] MEDS ORDERED: OXYCODONE-ACETAMINOPHEN 5-325 MG TABLET PO PRN ×3 (03:27→03:45)
[2020-03-22] MEDS ORDERED: MEPERIDINE HCL/PF INJ 25 MG/1 ML DISP.SYRIN IV PRN (03:27)
[2020-03-22] MEDS ORDERED: ONDANSETRON HCL INJ/PF 4 MG/2 ML SDV IV PRN (03:27)
[2020-03-22] MEDS ORDERED: MORPHINE SULFATE 10 MG/ML INJ IV PRN (03:27)
[2020-03-22] MEDS ORDERED: FENTANYL CITRATE INJ/PF 100 MCG/2 ML AMPUL IV PRN ×3 (03:27)
[2020-03-22] MEDS ORDERED: PROMETHAZINE HCL INJ 25 MG/1 ML VIAL IV PRN ×2 (03:27→03:45)
[2020-03-22] MEDS ORDERED: SIMETHICONE 80 MG TAB.CHEW PO PRN (03:45)
[2020-03-22] MEDS ORDERED: OXYTOCIN/0.9 % SODIUM CHLORIDE 30 UNIT/500 ML RTUINJ IV PRN (03:45)
[2020-03-22] MEDS ORDERED: MEASLES,MUMPS&RUBELLA VACC/PF 0.5 ML VIAL SUBCUT PRN (03:45)
[2020-03-22] MEDS ORDERED: ACETAMINOPHEN 1 GM/100 ML RTUPB IV PRN (03:45)
[2020-03-22] MEDS ORDERED: ACETAMINOPHEN 325 MG TABLET PO PRN (03:45)
[2020-03-22] MEDS ORDERED: DIPH/PERTUSS(ACELL)/TETANUS VAC/PF 0.5 ML SYR (>=10YO) IM PRN (03:45)
[2020-03-22] MEDS ORDERED: HYDROMORPHONE HCL INJ/PF 2 MG/ML AMPULE IV PRN (04:00)
[2020-03-22 04:05] LABS: HEMATOCRIT 33.4 % (36.0-47.0); HEMOGLOBIN 11.5 g/dL (12.0-15.5); MEAN CORPUSCULAR HGB CONC 34.3 g/dL (32.0-36.0); MEAN CORPUSCULAR VOLUME 88 fl (80-97); PLATELET COUNT 252 10^3/uL (150-450); RED BLOOD COUNT 3.82 10^6/uL (3.72-5.28); RED CELL DISTRIBUTION WIDTH 14.2 % (11.5-14.0)
--- NOTE | 2020-03-22 04:06 | Operative Report ---
Operative Report DATE OF SURGERY: 03/22/20 PREOPERATIVE DIAGNOSIS: Intrauterine at 28.2 wks EGA. Placental abru ption. Complete previa. Non-reassuring heart tracing. Maternal opiate dependence. Tobacco abuse. Failed one hour glucose, had not completed three hour test. History of delivery. History of abruption POSTOPERATIVE DIAGNOSIS: same as above OPERATION: Primary low transverse section SURGEON: ALBINO VANEGAS ANESTHESIA: GA TISSUE REMOVED OR ALTERED: Placenta COMPLICATIONS: Uterine atony ESTIMATED BLOOD LOSS: 1,500cc INTRAOPERATIVE FINDINGS: Normal appearing uterus, bilateral fallopian tubes and ovaries. Viable male approximate gestation 28.2 weeks. Cried small amount prior to hand off to NICU staff awaiting. Clear amniotic fluid PROCEDURE: IV fluids: per anesthesia record Urinary output: 350 cc Findings: Normal-appearing uterus bilateral fallopian tubes and ovaries. Placenta with visible abruption near cervix, remaining placenta anterior. Viable male infant, clear amniotic fluid Position: To recovery room in stable condition Description of procedure: The patient was taken to the operating room and general anesthesia was administered and found to be adequate. She was then placed on the OR table in the supine position with a slight leftward tilt. Patient was prepped and draped in usual sterile fashion. Ancef 2 gms was given IV prior to the procedure for infection prophylaxis. Timeout was taken. A Pfannenstiel skin incision was then made approximately 3 cm above the pubic symphysis and carried down to level the rectus fascia. The rectus fascia was then nicked in the midline with a scalpel and the fascial incision was extended laterally with use of curved Maguire scissors. The rectus fascia was then grasped with 2 Kocker clamps elevated and the underlying rectus muscle was dissected off both bluntly and sharply. Any bleeding controlled with cautery. The rectus muscles were then split in the midline and the peritoneum was entered. The peritoneal incision was then extended by manually stretching the peritoneum. The bladder blade was positioned. The bladder was noted to be out of harm's way. A scalpel was then used in the lower uterine for the hysterotomy, slowly until amniotomy was obtained a large amount of fluid was noted. The uterine incision was then manually stretched. The was noted to be in vertex postion. Using surgeons hand, the head was elevated and brought to the hysterotomy incision. The head then delivered with minmal difficulty. The shoulders and the rest of the body followed immediately. The cord was cut clamped and the was handed off to the nurse awaiting. Infant did cry a small amount prior to hand off. The placenta was manually delivered. Using a lap gauze the uterus was cleared of all clots and debris. The uterus was then exteriorized and a bladder blade was repositioned. The uterine incision was then closed with 0 Chromic suture in a running locked fashion. A second layer of the same suture was used in a running locked imbricated fashion. One small area in the midline was oozing and a box stitch was placed in this area. The uterine incision was inspected and noted to be hemostatic. The posterior aspect of the uterus was then inspected and anatomy was seen as above. The uterus was returned to its normal anatomic position within the abdominal cavity. Warm saline irrigation was used to clear all clots and debris from the abdomen. The uterine incision was inspected once more and noted to remain hemostatic. A surgiseal was layed over top of the incision. The bladder blade was removed and the peritoneum was closed with 2-0 chromic in a running fashion. The rectus muscles were then reapproximated and the rectus fascia was closed with a #0 looped PDS in a running fashion. The subcutaneous tissue was then inspected and any bleeding was controlled with Bovie electrocautery. The subcutaneous tissue was then closed with 2-0 Plain Gut suture in a running fashion. The skin was then closed with 3-0 Monocryl in a running subcuticular fashion. The skin incision was then clean dried and Dermabond was applied over the skin incision. All instrument sponge and needle counts were correct x3 for the procedure the patient tolerated the procedure well. She will proceed to recovery room in stable condition
[2020-03-22] MEDS ORDERED: HYDROMORPHONE HCL INJ/PF 2 MG/ML AMPULE ONE ×2 (04:35→05:34)
[2020-03-22] MEDS: HYDROMORPHONE HCL INJ/PF 2 MG/ML AMPULE IV PRN ×5 (04:36→21:58)
[2020-03-22] MEDS ORDERED: CEFAZOLIN 1 GM/D5W RTU 1 GM/50 ML RTUPB IV ONE (04:55)
[2020-03-22] MEDS ORDERED: TRANEXAMIC ACID INJ/PF 1,000 MG/10 ML SDV ONE (04:57)
[2020-03-22 05:09] LABS: APPEARANCE,URINE SLIGHTLY-CLOUDY; BILIRUBIN,URINE NEGATIVE (NEGATIVE); COLOR,URINE YELLOW; GLUCOSE, URINE NEGATIVE (NEGATIVE); KETONES,URINE NEGATIVE (NEGATIVE); LEUKOCYTE ESTERASE,URINE NEGATIVE (NEGATIVE); NITRITE,URINE NEGATIVE (NEGATIVE); PROTEIN,URINE NEGATIVE (NEGATIVE); URINE SPECIFIC GRAVITY 1.012; UROBILINOGEN,URINE NEGATIVE mg/dL (<2.0)
[2020-03-22 05:25] LABS: URINE AMPHETAMINES SCREEN NEGATIVE; URINE BARBITURATES SCREEN NEGATIVE; URINE BENZODIAZEPINES SCREEN NEGATIVE; URINE COCAINE SCREEN NEGATIVE; URINE MARIJUANA (THC) SCREEN NEGATIVE; URINE METHADONE SCREEN NEGATIVE; URINE PHENCYCLIDINE SCREEN NEGATIVE
--- NOTE | 2020-03-22 05:30 | PDOC PROGRESS REPORT ---
Subjective Date:: 03/22/20 Subjective:: Called to PACU on 2nd floor as patient had large clots and vaginal bleeding. Keyshawn roximately 800-1000 on chux pads since delivery. On arrival fundus firm and at the level of the uterus. Blood in vault with clots. Evacuated. VSS with b/p 126/66 and pulse of 85 bpm. Second dose of 0.2 mg IM methergine given and TXA 1,000mg IV. Second unit blood transfusing and FFP just getting sta rte. Two additional units PRBC ordered for cross match and transfusion. FUndus remained firm and one below. NOw little to no blood trickles from vagina with fundal massage. Will continue blood products and periodic fundal massage. Reason For Visit: Physical Exam - Physical Exam Vital Signs: Temp Pulse Resp BP Pulse Ox 98.2 F 88 20 122/58 L 97 03/22/20 05:13 03/22/20 05:13 03/22/20 05:13 03/22/20 05:13 03/22/20 05:13 Intake & Output 03/20/20 03/21/20 03/22/20 06:59 06:59 06:59 Intake Total 0 Balance 0 General appearance: PRESENT: no acute distress, cooperative Respiratory exam: PRESENT: clear to auscultation scott Cardiovascular exam: PRESENT: RRR, +S1, +S2 GI/Abdominal exam: PRESENT: soft - Tender, especially near incision Extremities exam: PRESENT: full ROM. ABSENT: calf tenderness - SCDs on, clubbing, pedal edema Neurological exam: PRESENT: alert, oriented to person, oriented to place, oriented to time - Gynecological Exam Labia: normal Urethra: normal Introitus: normal Perineum: normal Cervix: other - Blood and clot in vault which were evacuated Result Laboratory Results: 03/22/20 03:58 03/22/20 03/22/20 03/22/20 02:16 02:16 03:50 WBC 11.8 H RBC 3.81 Hgb 11.9 L Hct 33.2 L MCV 87 MCH 31.1 MCHC 35.7 RDW 13.7 Plt Count 251 Seg Neutrophils % 69.6 Urine Color YELLOW Urine Appearance SLIGHTLY-CLOUDY Urine pH 8.0 Ur Specific [place] 1.012 Urine Protein NEGATIVE Urine Glucose (UA) NEGATIVE Urine Ketones NEGATIVE Urine Blood SMALL H Urine Nitrite NEGATIVE Ur Leukocyte Esterase NEGATIVE Blood Type O POSITIVE Antibody Screen NEGATIVE 03/22/20 03:58 WBC 16.0 H RBC 3.82 Hgb 11.5 L Hct 33.4 L MCV 88 MCH 30.0 MCHC 34.3 RDW 14.2 H Plt Count 252 Seg Neutrophils % Urine Color Urine Appearance Urine pH Ur Specific [place] Urine Protein Urine Glucose (UA) Urine Ketones Urine Blood Urine Nitrite Ur Leukocyte Esterase Blood Type Antibody Screen Assessment & Plan - Diagnosis (1) hemorrhage Qualifiers: hemorrhage type: unspecified Qualified Code(s): O72.1 - Other immediate hemorrhage Is this a current diagnosis for this admission?: Yes - Time Time Spent with patient: 15-24 minutes Medications reviewed and adjusted accordingly: Yes Anticipated DC Timeframe: within 72 hours - Plan Summary Plan Summary: As above. VSS COntinue PRBC and FFP Uterine massage q 15 minutes s/p Methergine 2 doses, Cytotec, TXA . Hx asthma: Avoid hemobate
[2020-03-22] MEDS ORDERED: LORAZEPAM INJ 2 MG/1 ML VIAL ONE (05:57)
[2020-03-22 06:12] LABS: HEMATOCRIT 31.3 % (36.0-47.0); HEMOGLOBIN 10.9 g/dL (12.0-15.5); MEAN CORPUSCULAR HEMOGLOBIN 30.2 pg (27.0-33.4); MEAN CORPUSCULAR HGB CONC 34.8 g/dL (32.0-36.0); MEAN CORPUSCULAR VOLUME 87 fl (80-97); RED CELL DISTRIBUTION WIDTH 13.8 % (11.5-14.0); WHITE BLOOD COUNT 26.8 10^3/uL (4.0-10.5)
[2020-03-22 06:13] LABS: PROTHROMBIN TIME 13.4 SEC (11.4-15.4)
[2020-03-22 06:14] LABS: FIBRINOGEN 337 mg/dL (209-497); PARTIAL THROMBOPLASTIN TIME 27.1 SEC (23.5-35.8)
[2020-03-22] MEDS ORDERED: BUPIVACAINE INJ/PF LIPOSOME/PF 266 MG/20 ML SDV ONE (06:18)
[2020-03-22 06:26] LABS: ALBUMIN 2.4 g/dL (3.5-5.0); ALKALINE PHOSPHATASE 85 U/L (38-126); ANION GAP 6 (5-19); ASPARTATE AMINO TRANSFERASE 21 U/L (14-36); BILIRUBIN,DIRECT 0.1 mg/dL (0.0-0.4); BILIRUBIN,TOTAL 0.1 mg/dL (0.2-1.3); BLOOD UREA NITROGEN 6 mg/dL (7-20); CALCIUM 8.1 mg/dL (8.4-10.2); CARBON DIOXIDE 19 mmol/L (22-30); CHLORIDE 107 mmol/L (98-107); GLUCOSE 142 mg/dL (75-110); POTASSIUM 4.4 mmol/L (3.6-5.0); TOTAL PROTEIN 4.7 g/dL (6.3-8.2)
[2020-03-22 06:32] LABS: ABSOLUTE LYMPHOCYTES# (MANUAL) 0.8 10^3/uL (0.5-4.7); ABSOLUTE MONOCYTES # (MANUAL) 0.8 10^3/uL (0.1-1.4); BASOPHILS % (MANUAL) 0 % (0-2); EOSINOPHILS % (MANUAL) 0 % (0-6); LYMPHOCYTES % (MANUAL) 3 % (13-45); MONOCYTES % (MANUAL) 3 % (3-13); SEGMENTED NEUTROPHILS % (MAN) 94 % (42-78); TOTAL CELLS COUNTED 100
[2020-03-22 06:34] LABS: PLATELET CLUMPS PRESENT; PLATELET COMMENT ADEQUATE
[2020-03-22 06:35] LABS: PLATELET COUNT 259 10^3/uL (150-450)
[2020-03-22] MEDS ORDERED: PROPOFOL INJ 200 MG/20 ML VIAL IV ONE (07:25)
[2020-03-22] MEDS ORDERED: OXYCODONE-ACETAMINOPHEN 5-325 MG TABLET ONE (07:45)
[2020-03-22] MEDS: OXYCODONE-ACETAMINOPHEN 5-325 MG TABLET PO PRN ×4 (07:47→20:20)
[2020-03-22] MEDS: CEFAZOLIN 1 GM/D5W RTU 1 GM/50 ML RTUPB IV SCH ×4 (07:58→21:58)
[2020-03-22] MEDS: IBUPROFEN 800 MG TABLET PO SCH ×3 (08:00→23:04)
[2020-03-22 09:26] LABS: HEMATOCRIT 30.9 % (36.0-47.0); HEMOGLOBIN 10.8 g/dL (12.0-15.5); MEAN CORPUSCULAR HEMOGLOBIN 30.5 pg (27.0-33.4); MEAN CORPUSCULAR VOLUME 87 fl (80-97); PLATELET COUNT 211 10^3/uL (150-450); RED BLOOD COUNT 3.55 10^6/uL (3.72-5.28); RED CELL DISTRIBUTION WIDTH 13.7 % (11.5-14.0); WHITE BLOOD COUNT 20.5 10^3/uL (4.0-10.5)
[2020-03-22] MEDS: RINGERS SOLUTION,LACTATED 1,000 ML IV PRN ×2 (09:29→18:40)
[2020-03-22 09:30] LABS: FIBRINOGEN 311 mg/dL (209-497); INTERNATIONAL RATION (INR) 0.98; PARTIAL THROMBOPLASTIN TIME 26.3 SEC (23.5-35.8); PROTHROMBIN TIME 13.2 SEC (11.4-15.4)
[2020-03-22] MEDS: PRENATAL VITAMIN W DHA CAPSULE PO SCH (10:24)
[2020-03-22] MEDS: DOCUSATE SODIUM 100 MG CAPSULE PO SCH ×2 (10:24→17:20)
[2020-03-22 13:42] LABS: ABSOLUTE LYMPHOCYTES (AUTO) 1.3 10^3/uL (0.5-4.7); ABSOLUTE MONOCYTES (AUTO) 0.9 10^3/uL (0.1-1.4); ABSOLUTE NEUT (AUTO) 15.7 10^3/uL (1.7-8.2); BASOPHILS % (AUTO) 0.1 % (0-2); HEMATOCRIT 30.9 % (36.0-47.0); HEMOGLOBIN 10.7 g/dL (12.0-15.5); LYMPHOCYTES % (AUTO) 7.2 % (13-45); MEAN CORPUSCULAR HEMOGLOBIN 30.1 pg (27.0-33.4); MEAN CORPUSCULAR HGB CONC 34.8 g/dL (32.0-36.0); MEAN CORPUSCULAR VOLUME 87 fl (80-97); PLATELET COUNT 193 10^3/uL (150-450); RED BLOOD COUNT 3.57 10^6/uL (3.72-5.28); RED CELL DISTRIBUTION WIDTH 13.9 % (11.5-14.0); SEGMENTED NEUTROPHILS % (AUTO) 87.7 % (42-78); TOTAL CELLS COUNTED % (AUTO) 100 %; WHITE BLOOD COUNT 17.9 10^3/uL (4.0-10.5)
[2020-03-23] MEDS: OXYCODONE-ACETAMINOPHEN 5-325 MG TABLET PO PRN ×3 (00:22→09:56)
[2020-03-23] MEDS: HYDROMORPHONE HCL INJ/PF 2 MG/ML AMPULE IV PRN ×2 (03:25→06:52)
[2020-03-23] MEDS: CEFAZOLIN 1 GM/D5W RTU 1 GM/50 ML RTUPB IV SCH ×2 (03:26→09:58)
[2020-03-23] MEDS: IBUPROFEN 800 MG TABLET PO SCH (06:38)
[2020-03-23 08:04] LABS: HEMATOCRIT 27.8 % (36.0-47.0); HEMOGLOBIN 9.6 g/dL (12.0-15.5); MEAN CORPUSCULAR HEMOGLOBIN 29.9 pg (27.0-33.4); MEAN CORPUSCULAR HGB CONC 34.5 g/dL (32.0-36.0); MEAN CORPUSCULAR VOLUME 87 fl (80-97); PLATELET COUNT 160 10^3/uL (150-450); WHITE BLOOD COUNT 11.2 10^3/uL (4.0-10.5)
[2020-03-23] MEDS: PRENATAL VITAMIN W DHA CAPSULE PO SCH (09:55)
[2020-03-23] MEDS: DOCUSATE SODIUM 100 MG CAPSULE PO SCH (09:56)
--- NOTE | 2020-03-23 11:09 | PDOC DISCHARGE SUMMARY ---
Impression - Admit/DC Date/PCP Admission Date/Primary Care Provider: 03/22/20 02:18 SID ELLIS MD Discharge Date: 03/23/20 - POD #1 and a half. Pt desires to be discharged to be able to go down to [facility] where her 28 wk baby is in there NICU. Pt doing well, denies dizzness, UOB, voiding and passing gas - Discharge Diagnosis (1) 28 weeks gestation of Is this a current diagnosis for this admission?: Yes (2) Placenta previa Is this a current diagnosis for this admission?: Yes (3) Placental abruption Is this a current diagnosis for this admission?: Yes (4) History of primary section Is this a current diagnosis for this admission?: Yes (5) hemorrhage Is this a current diagnosis for this admission?: Yes (6) Blood transfusion during current hospitalization Is this a current diagnosis for this admission?: Yes - Additional Information Resuscitation Status: Full Code Discharge Diet: As Tolerated, Regular Discharge Activity: Activity As Tolerated, No Driving, No Lifting Over 10 Pounds, Pelvic Rest Referrals: SID ELLIS MD [Primary Care Provider] - Prescriptions: Ibuprofen [Motrin 800 mg Tablet] 800 mg PO Q8 #60 tablet Oxycodone HCl/Acetaminophen [Percocet 5-325 mg Tablet] 1 tab PO Q4HP PRN #30 tablet PRN Reason: Pain Scale Of 4 Home Medications: Buprenorphine HCl/Naloxone HCl [Suboxone 8 mg-2 mg Sl Film] 1 film SL BID 11/19/19 Vit/Iron Fum/Folic AC [ Tablet] 1 each PO DAILY 11/19/19 Ibuprofen [Motrin 800 mg Tablet] 800 mg PO Q8 #60 tablet 03/23/20 Oxycodone HCl/Acetaminophen [Percocet 5-325 mg Tablet] 1 tab PO Q4HP PRN #30 tablet 03/23/20 Hospital Course 59. Maternal Morbidity (serious complications experinced by the mother associated with labor and delivery: Maternal transfusion Results Laboratory Results: WBC 11.2 10^3/uL (4.0-10.5) H 03/23/20 07:55 RBC 3.20 10^6/uL (3.72-5.28) L 03/23/20 07:55 Hgb 9.6 g/dL (12.0-15.5) L 03/23/20 07:55 Hct 27.8 % (36.0-47.0) L 03/23/20 07:55 MCV 87 fl (80-97) 03/23/20 07:55 MCH 29.9 pg (27.0-33.4) 03/23/20 07:55 MCHC 34.5 g/dL (32.0-36.0) 03/23/20 07:55 RDW 14.0 % (11.5-14.0) 03/23/20 07:55 Plt Count 160 10^3/uL (150-450) 03/23/20 07:55 Lymph % (Auto) 7.2 % (13-45) L 03/22/20 13:03 [place] % (Auto) 5.0 % (3-13) 03/22/20 13:03 Eos % (Auto) 0.0 % (0-6) 03/22/20 13:03 Baso % (Auto) 0.1 % (0-2) 03/22/20 13:03 Absolute Neuts (auto) 15.7 10^3/uL (1.7-8.2) H 03/22/20 13:03 Absolute Lymphs (auto) 1.3 10^3/uL (0.5-4.7) 03/22/20 13:03 Absolute Monos (auto) 0.9 10^3/uL (0.1-1.4) 03/22/20 13:03 Absolute Eos (auto) 0.0 10^3/uL (0.0-0.6) 03/22/20 13:03 Absolute Basos (auto) 0.0 10^3/uL (0.0-0.2) 03/22/20 13:03 Total Counted 100 03/22/20 05:58 Seg Neutrophils % 87.7 % (42-78) H 03/22/20 13:03 Seg Neuts % (Manual) 94 % (42-78) H 03/22/20 05:58 Lymphocytes % (Manual) 3 % (13-45) L 03/22/20 05:58 Monocytes % (Manual) 3 % (3-13) 03/22/20 05:58 Eosinophils % (Manual) 0 % (0-6) 03/22/20 05:58 Basophils % (Manual) 0 % (0-2) 03/22/20 05:58 Abs Neuts (Manual) 25.2 10^3/uL (1.7-8.2) H 03/22/20 05:58 Abs Lymphs (Manual) 0.8 10^3/uL (0.5-4.7) 03/22/20 05:58 Abs Monocytes (Manual) 0.8 10^3/uL (0.1-1.4) 03/22/20 05:58 Absolute Eos (Manual) 0.0 10^3/uL (0.0-0.6) 03/22/20 05:58 Abs Basophils (Manual) 0.0 10^3/uL (0.0-0.2) 03/22/20 05:58 Clumped Platelets PRESENT 03/22/20 05:58 Platelet Comment ADEQUATE 03/22/20 05:58 PT 13.2 SEC (11.4-15.4) 03/22/20 09:02 INR 0.98 03/22/20 09:02 APTT 26.3 SEC (23.5-35.8) 03/22/20 09:02 Fibrinogen 311 mg/dL (209-497) 03/22/20 09:02 Sodium 132.0 mmol/L (137-145) L 03/22/20 05:58 Potassium 4.4 mmol/L (3.6-5.0) 03/22/20 05:58 Chloride 107 mmol/L (98-107) 03/22/20 05:58 Carbon Dioxide 19 mmol/L (22-30) L 03/22/20 05:58 Anion Gap 6 (5-19) 03/22/20 05:58 BUN 6 mg/dL (7-20) L 03/22/20 05:58 Creatinine 0.35 mg/dL (0.52-1.25) L 03/22/20 05:58 Est GFR ( Amer) > 60 (>60) 03/22/20 05:58 Est GFR (MDRD) Non-Af > 60 (>60) 03/22/20 05:58 Glucose 142 mg/dL (75-110) H 03/22/20 05:58 Calcium 8.1 mg/dL (8.4-10.2) L 03/22/20 05:58 Total Bilirubin 0.1 mg/dL (0.2-1.3) L 03/22/20 05:58 Direct Bilirubin 0.1 mg/dL (0.0-0.4) 03/22/20 05:58 Neonat Total Bilirubin Not Reportable 03/22/20 05:58 Neonat Direct Bilirubin Not Reportable 03/22/20 05:58 Neonat Indirect Bili Not Reportable 03/22/20 05:58 AST 21 U/L (14-36) 03/22/20 05:58 ALT 12 U/L (<35) 03/22/20 05:58 Alkaline Phosphatase 85 U/L (38-126) 03/22/20 05:58 Total Protein 4.7 g/dL (6.3-8.2) L 03/22/20 05:58 Albumin 2.4 g/dL (3.5-5.0) L 03/22/20 05:58 Urine Color YELLOW 03/22/20 03:50 Urine Appearance SLIGHTLY-CLOUDY 03/22/20 03:50 Urine pH 8.0 (5.0-9.0) 03/22/20 03:50 Ur Specific [place] 1.012 03/22/20 03:50 Urine Protein NEGATIVE mg/dL (NEGATIVE) 03/22/20 03:50 Urine Glucose (UA) NEGATIVE mg/dL (NEGATIVE) 03/22/20 03:50 Urine Ketones NEGATIVE mg/dL (NEGATIVE) 03/22/20 03:50 Urine Blood SMALL (NEGATIVE) H 03/22/20 03:50 Urine Nitrite NEGATIVE (NEGATIVE) 03/22/20 03:50 Urine Bilirubin NEGATIVE (NEGATIVE) 03/22/20 03:50 Urine Urobilinogen NEGATIVE mg/dL (<2.0) 03/22/20 03:50 Ur Leukocyte Esterase NEGATIVE (NEGATIVE) 03/22/20 03:50 Urine Ascorbic Acid NEGATIVE (NEGATIVE) 03/22/20 03:50 Urine Opiates Screen NEGATIVE 03/22/20 03:50 Urine Methadone Screen NEGATIVE 03/22/20 03:50 Ur Barbiturates Screen NEGATIVE 03/22/20 03:50 Ur Phencyclidine Scrn NEGATIVE 03/22/20 03:50 Ur Amphetamines Screen NEGATIVE 03/22/20 03:50 U Benzodiazepines Scrn NEGATIVE 03/22/20 03:50 Urine Cocaine Screen NEGATIVE 03/22/20 03:50 U Marijuana (THC) Screen NEGATIVE 03/22/20 03:50 RPR NONREACTIVE (NONREACTIVE) 03/22/20 02:16 Influenza A (RT-PCR) NEGATIVE (NEGATIVE) 03/22/20 05:57 Influenza B (RT-PCR) NEGATIVE (NEGATIVE) 03/22/20 05:57 RSV (RT-PCR) NEGATIVE (NEGATIVE) 03/22/20 05:57 SARS-CoV-2 Rap RNA(RT-PCR) NEGATIVE (NEGATIVE) 03/22/20 05:57 Blood Type O POSITIVE 03/22/20 02:16 Antibody Screen NEGATIVE 03/22/20 02:16 Crossmatch See Detail 03/22/20 02:16 Plan Health Concerns: iron rich foods Plan of Treatment: d/c home, precautions reviewed. f/up for incision check in one week at [facility] Time Spent: Less than 30 Minutes
[2020-03-23 11:35] VITALS: BP 135/74
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
== END 2020-03-23 11:54 | disposition home or self-care (01) | DRG 787 ==
LOC: LC 01:55 → LR 02:18 → 2S 09:51
PROVIDERS: ADMIT Obstetrics & Gynecology; ATTEND Obstetrics & Gynecology
PROC: 10D00Z1 Extraction of Products of Conception, Low, Open Approach (ICD-10-PCS; principal; 2020-03-22)
PROC: 30233K1 Transfusion of Nonautologous Frozen Plasma into Peripheral Vein, Percutaneous Approach (ICD-10-PCS; 2020-03-22)
PROC: 30233N1 Transfusion of Nonautologous Red Blood Cells into Peripheral Vein, Percutaneous Approach (ICD-10-PCS; 2020-03-22)
DX: O44.13 Complete placenta previa with hemorrhage, third trimester (principal); O72.1 Other immediate postpartum hemorrhage; O99.324 Drug use complicating childbirth; F11.20 Opioid dependence, uncomplicated; O99.354 Diseases of the nervous system complicating childbirth; O76 Abnormality in fetal heart rate and rhythm complicating labor and delivery; Z3A.28 28 weeks gestation of pregnancy; Z37.0 Single live birth; Z20.822 Contact with and (suspected) exposure to COVID-19; O99.334 Smoking (tobacco) complicating childbirth; F17.210 Nicotine dependence, cigarettes, uncomplicated; Z87.820 Personal history of traumatic brain injury; Z62.810 Personal history of physical and sexual abuse in childhood; G40.909 Epilepsy, unspecified, not intractable, without status epilepticus
CPT/HCPCS: 1961; 36415; 36430; 80053; 80307; 81005; 85025; 85027; 85384; 85610; 85730; 86592; 86850; 86900; 86901; 86920; 88307; 94760; 94799; 99140; 99465; 0241U; C9290; C9803; J0131; J0690; J1100; J1170; J1885; J2060; J2210; J2250; J2270; J2405; J2590; J2704; J3010; J3490; J7120; P9016; P9017